=== PATIENT | female | born 1950 | race Caucasian/White ===

== ENCOUNTER 2021-09-14 11:45 | Outpatient (CLI) | payer OTHER, MEDICARE, SELFPAY ==
[2021-09-14 17:13] LABS: Albumin* 4.2 g/dL (3.3-5.0); Chloride* 92 mmol/L (96-114); Potassium* 3.7 mmol/L (3.6-5.1); Sodium* 137 mmol/L (135-149)
[2021-09-14 17:15] LABS: Bilirubin Total* 0.4 mg/dL (0.1-1.5); Carbon Dioxide* 36 mmol/L (20-32); Creatinine* 0.8 mg/dL (0.5-1.5); Estimated Glomerular Filt Rate 80 ml/min
[2021-09-14 17:16] LABS: Alanine Aminotransferase* 26 U/L (4-35); Alkaline Phosphatase* 131 U/L (40-150); Aspartate Amino Transferase* 37 U/L (12-35); Blood Urea Nitrogen* 14 mg/dL (7-30); Calcium* 8.4 mg/dL (8.4-10.6); Glucose* 100 mg/dL (60-115); Lipase* 121 U/L (23-300); Total Protein* 7.3 g/dL (6.0-8.3)
== END 2021-09-14 11:46 | disposition home or self-care (01) ==
PROVIDERS: PCP Family Medicine; Visit Provider Family Medicine
DX: K59.00 Constipation, unspecified (principal)
CPT/HCPCS: 80053; 83690

== ENCOUNTER 2021-10-08 15:10 | Outpatient (CLI) | payer OTHER, MEDICARE, SELFPAY ==
--- NOTE | 2021-10-08 15:30 | CRLHL7_ITS ---
For Patients: As a result of the Century Cures Act, medical imaging exams and procedure reports are released immediately into your electronic medical record. You may view this report before your referring provider. If you have questions, please contact your health care provider. INDICATION: Upper abdominal pain. Bilious vomiting. TECHNIQUE: An MRCP, including 2D, 3D and maximum intensity projection imaging, was performed along with multiplanar imaging of the abdomen without and with 15 cc of Dotarem contrast material IV. COMPARISON: Abdomen/pelvis CT of 02/06/2013. FINDINGS: The common bile duct is smoothly marginated and measures up to 4 mm in diameter. No filling defect is evident. The intrahepatic ducts are normal in caliber and appear to branch and taper in a grossly normal fashion. Postop changes of cholecystectomy are again demonstrated. The pancreatic duct is normal. A 1.5 x 1.1 x 0.9 cm pancreatic body cyst is demonstrated. This may communicate with the main pancreatic duct. The pancreatic parenchyma is otherwise unremarkable. The liver is normal in size, shape and signal. A typical 1.4 cm hemangioma is demonstrated in liver segment 6. the portal vein is patent and demonstrates no filling defect. No portosystemic collateral vein is evident. The spleen is negative. No ascites demonstrated. The adrenal cap glands and kidneys are within normal limits. Postop changes of gastric bypass are again demonstrated. A hiatal hernia of moderate size is noted. There is a moderate to large amount of stool in the colon. No lymphadenopathy is evident. IMPRESSION: 1. Negative MRCP post cholecystectomy. 2. 1.5 cm pancreatic body cyst. Consider IPMN. Based on recommendations of the ACR Incidental Findings Committee: Managing Incidental Findings on Abdominal CT: White Paper of the ACR Incidental Findings Committee, JACR, November 2009), follow up MRI in 1 year is recommended. 3. Post gastric bypass. 4. Typical 1.4 cm liver segment 6 hemangioma. 5. Hiatal hernia of moderate size. 6. Possible constipation. Dictated by Martin Meyer MD @ 10/11/2021 5:32:31 AM (Electronically Signed)
== END 2021-10-08 15:11 | disposition home or self-care (01) ==
LOC: MRI 15:12
PROVIDERS: PCP Family Medicine; Visit Provider Family Medicine
DX: R10.9 Unspecified abdominal pain (principal); K44.9 Diaphragmatic hernia without obstruction or gangrene; K86.2 Cyst of pancreas
CPT/HCPCS: 74183; A9575

== ENCOUNTER 2022-08-08 09:56 | Emergency (ER) | payer OTHER, MEDICARE, SELFPAY ==
[2022-08-08 10:07] VITALS: BP 125/76; PULSE 93; RESP 18; TEMP 36.3; O2SAT 99; BMI 27.9
--- NOTE | 2022-08-08 10:16 | CRLHL7_ITS ---
For Patients: As a result of the Cures Act, medical imaging exams and procedure reports are released immediately into your electronic medical record. You may view this report before your referring provider. If you have questions, please contact your health care provider. INDICATION: Fall. COMPARISON: None. TECHNIQUE: Left knee 3 views. IMPRESSION: No acute fracture. Alignment is normal. Jnyk-ns-[id number] degenerative changes most pronounced in the lateral compartment. Small joint effusion on lateral view. Dictated by Bud Castañeda MD @ 08/08/2022 12:23:46 PM (Electronically Signed)
--- NOTE | 2022-08-08 10:16 | CRLHL7_ITS ---
For Patients: As a result of the Century Cures Act, medical imaging exams and procedure reports are released immediately into your electronic medical record. You may view this report before your referring provider. If you have questions, please contact your health care provider. INDICATION: Fell and hit head yesterday TECHNIQUE: Noncontrast axial CT of the head. Coronal and sagittal reformats. Bone and soft tissue algorithms. COMPARISON: CT head report 01/20/2014 FINDINGS: No acute intracranial hemorrhage or abnormal extra-axial fluid collection. No midline shift, hydrocephalus, or herniation. Brain parenchymal volume appears age-appropriate. Nunez-white matter differentiation is grossly maintained. White matter attenuation is unremarkable. Midline structures appear within normal limits. Minor calcific plaquing at the carotid siphons. No paranasal sinus air-fluid level or mastoid effusion. Bilateral lens implants. Bony calvarium is grossly intact. Hyperostosis frontalis interna. Presumed small skull vault hemangioma at the right parietal vertex. Incidental right frontal convexity inner table osteoma. Partially visualized posterior cervical spinal fusion changes. IMPRESSION: No CT evidence of skull fracture or acute intracranial hemorrhage. Please note that all CT scans at this facility use dose modulation, iterative reconstruction, and/or weight-based dosing when appropriate to reduce radiation dose to as low as reasonably achievable. Dictated by Isabela Belcher MD @ 08/08/2022 11:02:02 AM (Electronically Signed)
--- NOTE | 2022-08-08 10:16 | CRLHL7_ITS ---
For Patients: As a result of the Cures Act, medical imaging exams and procedure reports are released immediately into your electronic medical record. You may view this report before your referring provider. If you have questions, please contact your health care provider. INDICATION: Fall. COMPARISON: None. TECHNIQUE: Left wrist 3 views. IMPRESSION: No acute fracture. Widening of the scapholunate interval could be due to underlying scapholunate ligament tear/insufficiency. Mild degenerative changes. Mild soft tissue swelling. Dictated by Bud Castañeda MD @ 08/08/2022 12:22:19 PM (Electronically Signed)
--- NOTE | 2022-08-08 10:17 | ED_ITS ---
HPI - General Adult General Time Seen by Provider: 10:17 Date Seen: 08/08/22 Chief complaint: Fall/Minor Trauma Stated complaint: fell, hit head Time Seen by Provider: 08/08/22 09:58 Source: patient Mode of arrival: ambulatory Limitations: no limitations History of Present Illness HPI narrative: Patient is a 71-year-old female with multiple medical problems including hypoparathyroidism, cervical stenosis of the spine status post cervical fusion migraine headaches, black breast cancer, ischemic stroke, fibromyalgia, sarcoidosis, wheals disease presents after a fall while trying to step off a curb at [employer] to get into the store she fell forward injured her left wrist and left knee ; this happened yesterday. Patient reports also she bumped the right front part of her head in her scalp line has a slight scrape there. Really has not had a significant headache, has no change in neck symptoms reports she did not lose consciousness, or have nausea vomiting or dizziness. She presents today for evaluation more concerned about her wrist. She has trouble with pronation supination of her wrist. She has no proximal arm tenderness. No complaint of pain in her back pelvis or lower extremities other than the left knee and she has been ambulatory. Related Data Home Medications Medication Instructions Recorded Confirmed CBD Cream topical 09/14/21 07/12/22 aspirin 81 mg tablet,delayed 81 mg PO QDAY 09/14/21 07/12/22 release calcitriol 0.5 mcg capsule 0.5 mcg PO TID 09/14/21 07/12/22 calcium carbonate 500 mg calcium 500 mg PO QDAY 09/14/21 07/12/22 (1,250 mg) chewable tablet (Calcium 500) levothyroxine 137 mcg tablet 137 mcg PO DAILY 09/14/21 07/12/22 lidocaine 5 % topical patch 1 patch topical Q24H 09/14/21 07/12/22 multivitamin (Multiple Vitamins 1 tab PO QDAY 09/14/21 07/12/22 tablet) omeprazole 40 mg capsule,delayed 40 mg PO BID 09/14/21 07/12/22 release potassium chloride 10 mEq 20 - 30 meq PO BID 09/14/21 07/12/22 tablet,extended release sennosides 15 mg tablet (Ex-Lax 15 - 30 mg PO QDAY PRN 09/14/21 07/12/22 (sennosides)) triamterene 37.5 1 cap PO DAILY 09/14/21 07/12/22 mg-hydrochlorothiazide 25 mg capsule budesonide 3 mg 9 mg PO DAILY 07/12/22 07/12/22 capsule,delayed,extended release Previous Rx's Medication Instructions Recorded gabapentin 300 mg capsule 600 mg (2 x 300 mg) PO TID #540 09/14/21 caps nortriptyline 10 mg capsule 20 mg (2 x 10 mg) PO QDAY #180 caps 09/14/21 cyclobenzaprine 10 mg tablet See Rx Instructions .Route 01/05/22 .COMPLEX #270 tabs tramadol 50 mg tablet 50 - 100 mg (1 - 2 x 50 mg) PO Q6H 04/06/22 PRN pain #360 tabs escitalopram oxalate 10 mg tablet 10 mg PO DAILY #90 tabs 05/07/22 furosemide 20 mg tablet 20 mg PO DAILY #90 tabs 05/07/22 promethazine 12.5 mg tablet 12.5 mg PO Q4-6H #270 tabs 06/15/22 Allergies Allergy/AdvReac Type Severity Reaction Status Date / Time saniya Allergy Severe asthma Verified 07/12/22 11:08 reaction azithromycin Allergy Mild Rash Verified 07/12/22 11:08 naproxen Allergy Unknown Verified 07/12/22 11:08 ibuprofen AdvReac Mild can cause Verified 07/12/22 11:08 bleeding due to gastric bypass Review of Systems Status of ROS: Reports: 6 or more systems reviewed and unremarkable except as noted in History and below [facility] Surgical History Status post total abdominal hysterectomy and bilateral salpingo-oophorectomy ?Z90.710 - Acquired absence of both cervix and uterus (ICD-10) ?Z90.722 - Acquired absence of ovaries, bilateral (ICD-10) ?Z90.79 - Acquired absence of other genital organ(s) (ICD-10) History of ventral hernia repair (09/23/08) ?Z98.890 - Other specified postprocedural states (ICD-10) ?Z87.19 - Personal history of other diseases of the digestive system (ICD-10) History of thyroidectomy (09/23/08) ?E89.0 - Postprocedural hypothyroidism (ICD-10) History of cholecystectomy (09/23/08) ?Z90.49 - Acquired absence of other specified parts of digestive tract (ICD- 10) History of Billroth II operation (09/23/08) ?Z98.0 - Intestinal bypass and anastomosis status (ICD-10) History of arthroscopic surgery of shoulder ?Z98.890 - Other specified postprocedural states (ICD-10) Family History Other Breast cancer Colon cancer Pancreatic cancer Social History Smoking Status: Never smoker Exam Narrative: Exam Narrative: Objective: Patient is alert orient x3 Vital signs unremarkable There is just a superficial scrape on the right hairline mid frontal no palpable step-off Neck postoperative change noted no midline tenderness no obvious trauma or redness or erythema. Chest back abdomen pelvis are unremarkable she Left wrist shows some tenderness over the ulnar styloid, limited pronation supination flexion extension due to tenderness, there baby wild swelling that area as well no snuffbox tenderness Left knee shows slight bruise in prepatellar swelling but no obvious open wounds, range of motion is full distal CMS intact. Neurologic is nonfocal upper lower extremities Const: Vital Signs, click to edit/add: Vital Signs - 24 hr 08/08/22 10:07 Temperature 97.4 F L Pulse Rate [Right Pulse Oximeter] 93 Respiratory Rate 18 Blood Pressure [Ri ght Upper Arm] 125/76 Pulse Oximetry 99 Oxygen Delivery Me thod Room Air Course Vital Signs Vital signs: Initial Vital Signs Temperature 97.4 F L 08/08/22 10:07 Temperature Source Temporal Artery Scan 08/08/22 10:07 Pulse Rate 93 08/08/22 10:07 Respiratory Rate 18 08/08/22 10:07 Blood Pressure 125/76 08/08/22 10:07 Blood Pressure Mean 92 08/08/22 10:07 Blood Pressure Position Sitting 08/08/22 10:07 Pulse Oximetry 99 08/08/22 10:07 Oxygen Delivery Method Room Air 08/08/22 10:07 Vital Signs Temperature 97.4 F L 08/08/22 10:07 Pulse Rate 93 08/08/22 10:07 Respiratory Rate 18 08/08/22 10:07 Blood Pressure 125/76 08/08/22 10:07 Pulse Oximetry 99 08/08/22 10:07 Oxygen Delivery Method Room Air 08/08/22 10:07 Temperature 97.4 F L 08/08/22 10:07 Pulse Rate 93 08/08/22 10:07 Respiratory Rate 18 08/08/22 10:07 Blood Pressure 125/76 08/08/22 10:07 Pulse Oximetry 99 08/08/22 10:07 Oxygen Delivery Method Room Air 08/08/22 10:07 Medical Decision Making MDM Narrative Medical decision making narrative: Patient is a 71-year-old female with multiple medical issues who has fallen yesterday has left wrist left knee pain, will get x-rays of these areas. I suspect she may have some injury to the wrist but the knee she is ambulatory I think this just a soft tissue bruise but will check x-rays. She also scraped the frontal area of her head and bumped her head, I think for completeness will get a head CT scan. Does not report any neck pain it has changed from normal and she has no neurologic symptoms or signs. She had no loss of consciousness, no nausea or significant head injury symptoms. Will check the above-mentioned studies. Addendum: 10:55 a.m.: Patient has some debris in the dorsal radius, that could be a small chip fracture. I do not see any other large bone fracture. Would recommend a wrist splint for now and orthopedic follow-up. Knee x-ray by my read looks unremarkable. Head CT is pending. If the head CT is reassuring I think we can discharge home with a left wrist splint, Tylenol as needed, icing, recheck with Ortho in 3-5 days. Will attempt to make an appointment for her. She could see the ortho PA Discharge Plan Discharge Clinical Impression: Abrasion of forehead, Acute pain of left wrist, Fall, Contusion of knee, left Patient Disposition: Home w/ Parent or Adult Condition: Stable Additional Instructions: Left wrist splint to wear until follow-up with Orthopedics. Recommend he follow up with orthopedic PA in the next 3-5 days. Please give the patient the number for the clinic. Recommend icing and Tylenol as needed. Return to ED problems or concerns. Activity Level: Light activity Discharge Diet: Regular Prescriptions: No Action potassium chloride 10 mEq tablet extended release 20 - 30 meq PO BID Patient Comments: 3 Tab QAM, 2 Tab in evening. lidocaine 5 % adhesive patch,medicated 1 patch topical Q24H Rx Instructions: APPLY FOR 12 HOURS OF EVERY 24 HOUR PERIOD omeprazole 40 mg capsule,delayed release(DR/EC) 40 mg PO BID levothyroxine 137 mcg tablet 137 mcg PO DAILY Ex-Lax (sennosides) 15 mg tablet 15 - 30 mg PO QDAY PRN multivitamin [Multiple Vitamins] Tablet 1 tab PO QDAY CBD Cream topical calcium carbonate [Calcium 500] 500 mg calcium (1,250 mg) tablet,chewable 500 mg PO QDAY aspirin 81 mg tablet,delayed release (DR/EC) 81 mg PO QDAY triamterene-hydrochlorothiazid 37.5-25 mg capsule 1 cap PO DAILY calcitriol 0.5 mcg capsule 0.5 mcg PO TID Rx Instructions: 2 in the morning, 1 in the afternoon and 2 in the evening. gabapentin 300 mg capsule 600 mg PO TID Qty: 540 4RF nortriptyline 10 mg capsule 20 mg PO QDAY Qty: 180 3RF budesonide 3 mg capsule,delayed,extend.release 9 mg PO DAILY cyclobenzaprine 10 mg tablet See Rx Instructions .ROUTE .COMPLEX Qty: 270 3RF Dose Instruction: TAKE 1 TABLET THREE TIMES A DAY NEEDED Rx Instructions: TAKE 1 TABLET THREE TIMES A DAY NEEDED tramadol 50 mg tablet 50 - 100 mg PO Q6H PRN (Reason: pain) Qty: 360 1RF escitalopram oxalate 10 mg tablet 10 mg PO DAILY Qty: 90 2RF furosemide 20 mg tablet 20 mg PO DAILY Qty: 90 2RF promethazine 12.5 mg tablet 12.5 mg PO Q4-6H Qty: 270 6RF Follow Up/Referrals: Dean Lomeli MD [Primary Care Provider] - Stand Alone Forms: [employer] Info Instructions
== END 2022-08-08 11:16 | disposition home or self-care (01) ==
LOC: ED 10:59
PROVIDERS: Emergency Provider Family Medicine; PCP Family Medicine
DX: S00.91XA Abrasion of unspecified part of head, initial encounter (principal); S60.212A Contusion of left wrist, initial encounter; S80.02XA Contusion of left knee, initial encounter; W01.0XXA Fall on same level from slipping, tripping and stumbling without subsequent striking against object, initial encounter
CPT/HCPCS: 29125; 70450; 73110; 73562; 99283; 99284

== ENCOUNTER 2022-09-03 11:49 | Outpatient (CLI) | payer OTHER, MEDICARE, SELFPAY | END 2022-09-03 11:50 | disposition home or self-care (01) | PROVIDERS: PCP Family Medicine; Visit Provider Family Medicine | DX: R51.9 Headache, unspecified (principal); E03.9 Hypothyroidism, unspecified; E20.9 Hypoparathyroidism, unspecified | CPT/HCPCS: 85651; 86140 ==

== ENCOUNTER 2022-12-03 11:43 | Outpatient (CLI) | payer OTHER, MEDICARE, SELFPAY | END 2022-12-03 11:44 | disposition home or self-care (01) | PROVIDERS: PCP Family Medicine; Visit Provider Family Medicine | DX: E03.9 Hypothyroidism, unspecified (principal); E20.9 Hypoparathyroidism, unspecified; R53.83 Other fatigue; E53.8 Deficiency of other specified B group vitamins; M79.603 Pain in arm, unspecified; R51.9 Headache, unspecified | CPT/HCPCS: 80053; 82607; 84439; 84443; 85651; 86140 ==

== ENCOUNTER 2022-12-27 09:52 | Outpatient (CLI) | payer OTHER, MEDICARE, SELFPAY ==
--- OUTSIDE RECORDS SUMMARY | 2022-12-27 10:02 | XMS_ITS | Continuity of Care Document ---
Author Name Unknown Organization [facility] Address [address] [place] [address] [address] [place] [address] Phone Care Team Providers Care Desktop Support Engineer Name Role Phone Unavailable Unavailable Unavailable Procedures Procedure Date Office/outpatient visit,[facility] 2009 Advance Directives Directive Yes / No Effective Date File Name No Information Encounters Encounter Description Practice Location Reason(s) For Visit Diagnoses Date Provider Providers Copied on Encounter Z [facility], [address], [facility], tel:[phone] [employer] No Information 0 No Information Office/outpat ient visit,[facility], [facility], [address] [place] [address], [place], [facility], tel:[phone] [employer] [place] No Information 0 No Information Referring Provider: Cruz Santos, [facility] [address], [place], [address]. tel:[phone] Family History Family Member Type Diagnosis Age At Onset No Information Payers Payer name Insurance type Covered [place] [id number] Social History Type Description Quantity Date Captured Comments Sex Female Smoking Status No Information Vital Signs Date / Time: Height Weight BMI Pulse Rate Blood Pressure Temperature Respiratory Rate Body Surface Area Head Circumference Head Circ. Percentile Wt./Bernardo. Percentile BMI percentile Pulse Ox Inhaled Ox 1:18 PM 59.80 in 66.890 kg (147.20 lbs) 29.0 4 kg/m eter (2) Chief Complaint And Reason For Visit No Information Reason For Referral Reason For Referral No Information History Of Present Illness Encounter Date Complaint History Of Prese nt Illness No Information Functional Status Date Functional Assessmen t No Information Instructions Date Instruction Additional Infor mation No Information Assessments Type Assessment Date No Information Patient Care Teams Name Effective Dates (start - stop) Status Members No Information
--- NOTE | 2022-12-27 10:15 | CRLHL7_ITS ---
For Patients: As a result of the Century Cures Act, medical imaging exams and procedure reports are released immediately into your electronic medical record. You may view this report before your referring provider. If you have questions, please contact your health care provider. Indication: Headache. Technique: Multiplanar, multisequence MRI of the brain was performed without intravenous contrast. Comparison: None relevant available. Findings: The corpus callosum, pituitary gland and clivus appear intact. Mild degenerative change visualized upper cervical spine. There is no restricted diffusion. No intracranial hemorrhage. The ventricles are proportionate to the cerebral sulci. The 4th ventricle appears midline. The basal cisterns appear patent. No abnormal extra-axial fluid collection identified. Mild parenchymal volume loss. Scattered T2 FLAIR hyperintense foci within the subcortical and periventricular white matter, favored to represent chronic ischemic microvascular disease. There is no intracranial mass, abnormal mass-effect or midline shift identified. Small dural ossification along the right frontoparietal convexity. Major intracranial vascular flow voids appear grossly intact. Both globes are preserved. Mild to moderate left mastoid effusion. Impression: 1. No acute intracranial process. 2. Mild chronic ischemic microvascular disease. 3. Mild to moderate left mastoid effusion. Dictated by Romeo Ackerman MD @ 12/27/2022 11:18:39 AM (Electronically Signed)
== END 2022-12-27 09:53 | disposition home or self-care (01) ==
LOC: MRI 10:00
PROVIDERS: PCP Family Medicine; Visit Provider Family Medicine
DX: R51.9 Headache, unspecified (principal); I67.82 Cerebral ischemia
CPT/HCPCS: 70551

== ENCOUNTER 2023-11-28 11:49 | Outpatient (CLI) | payer OTHER, MEDICARE, SELFPAY ==
--- OUTSIDE RECORDS SUMMARY | 2023-11-28 11:54 | XMS_ITS | Continuity of Care Document ---
Author Organization Z [facility] Address [address] [place] [address] [address] [place] [address] Phone Care Team Providers Care Risk Analyst Name Role Phone Unavailable Unavailable Unavailable Procedures Procedure Date Office/outpatient visit,[facility] 2009 Advance Directives Directive Yes / No Effective Date File Name No Information Encounters Encounter Description Practice Location Reason(s) For Visit Diagnoses Date Provider Providers Copied on Encounter Z [facility], [address] [address], [place], [facility], tel:[phone] [employer] No Information 0 No Information Office/outpat ient visit,[facility], [facility] [place] [place] [facility], [address] [address], [place], [facility], tel:[phone] [employer] [place] No Information 0 No Information Referring Provider: Cruz Santos, [facility] [address] [facility] [address], [address]. tel:[phone] Family History Family Member Type Diagnosis Age At Onset No Information Payers Payer name Insurance type Covered [place] [id number] Social History Type Description Quantity Date Captured [...]
--- OUTSIDE RECORDS SUMMARY | 2023-11-28 11:54 | XMS_ITS | Clinical Summary ---
Author Organization [facility] Address [address] [place] [address] Care Team Providers Care Motion Picture Narrator Name Role Phone Elsewhere, Pcp Primary Care Provider Unavailabl e Source Comments Patient records contain information from all sites at [facility]. For routine questions regarding patient records, call [phone] during business hours, M-F 8:00 AM - 5:00 PM Central Time. Record requests for emergency care only can be directed to [phone] at any time.[facility] Allergies Active Allergy Reactions Criticality Noted Date Comments Mallory Anaphylaxis High 06/20/2017 Ibuprofen Other (see comments) Low 03/06/2006 Other reaction(s): per pt MD requested not to take p bypass, unable to take because of ulcers Naproxen Other (see comments) 07/12/2022 Nsaids (Non-Steroidal Anti-Inflammatory Drug) Other (see comments) High 11/22/2001 Past history of Mini gastric bypass (not to take Nsaids) Ondansetron Hcl GI intolerance High 10/02/2019 Medications * This document contains information received from the source organization and may not represent a complete record from that organization. cholecalciferol (for_VITAMIN D3) 1,000 Unit tablet Take 1 tablet by mouth daily. 11/17/19 16 Active cyclobenzaprine (for_FLEXERIL) 10 mg tablet Take 1 tablet by mouth 3 (three) times a day as needed for muscle spasms. 02/12/19 17 Active melatonin 5 mg tablet Take 1 tablet by mouth at bedtime as needed (sleep aid). 05/18/19 17 Active promethazine (PHENERGAN) 12.5 mg tablet Take 12.5-25 mg by mouth as needed for nausea. 10/13/19 18 Active lidocaine (LIDODERM) 5 % Place 1 patch on the skin daily as needed (pain). Remove & discard patch within 12 hours or as directed by MD. 150 patch 3 01/28/20 18 Active KETAMINE 5%, LIDOCAINE 5%-PLO Apply topically 3 (three) times a day as needed. Active furosemide (LASIX) 20 mg tablet Take 20 mg by mouth daily. Active multivitamin tablet Take 1 tablet by mouth daily. Active acetaminophen (TYLENOL) 500 mg tablet Take 2 tablets (1,000 mg total) by mouth every 6 (six) hours as needed for mild pain or score 1-3 of 10. 40 tablet 2 10/03/19 Active calcium carbonate 1,500 mg (600 mg calcium) tablet Take 3 tablets (1,800 mg of calcium total) by mouth 3 (three) times a day. 10/03/19 Active Additional Information Patient taking differently: 4,200 mg of calciumoral 3 times daily,2 tablets (1200 mg), 3 tablets(1800 mg), 2 tablets (1200 mg), takes so doesn't interfere with thyroid medicine dosing, Reported on 05/04/[address] tablet Take 81 mg by mouth daily. Active cyanocobalamin (VITAMIN B12) 1,000 mcg/mL injection Inject intramuscularly every 30 (thirty) days. Active traMADoL (ULTRAM) 50 mg tablet Take 50 mg by mouth every 4 (four) hours as needed for pain. Active benzonatate (TESSALON PERLES) 100 mg capsule Take 100 mg by mouth 3 (three) times a day as needed. 05/31/19 21 Active docusate sodium (COLACE) 100 mg capsule Take 3 capsules by mouth daily. 08/03/19 12 Active nortriptyline (PAMELOR) 10 mg capsule Take 1 capsule (10 mg total) by mouth at bedtime. 30 capsule 11 08/01/19 22 Active Additional Information Patient not taking.Reported on 08/22/2023 mometasone 0.033 %-ipratropium 0.02 %-diphenhydrami ne 0.033 % nasal spray Administer 2 sprays into each nostril 2 (two) times a day. Shake very well prior to each use. 75 mL 3 08/01/19 22 Active budesonide (ENTOCORT EC) 3 mg 24 hr capsule Take 3 capsules (9 mg total) by mouth every morning. 270 capsule 3 06/25/19 23 Active Additional Information Patient not taking.Reported on 08/22/2023 codeine-guaiFEN esin (ROBITUSSIN-AC) 10-100 mg/5 mL liquid TAKE 10ML BY MOUTH EVERY 4-6 HOURS NEEDED FOR COUGH. Active Synthroid 125 mcg tablet Take 125 mcg by mouth every morning before breakfast. 12/07/19 23 Active albuterol 90 mcg/actuation inhalerIndicati ons:Asthma Chronic (HCC) Inhale 2 puffs every 6 (six) hours as needed for wheezing. 18 g 01/24/20 23 024 Active Additional Information Patient not taking.Reported on 08/22/2023 potassium chloride (KLORCON/K-TAB) 10 mEq ER tabletIndicatio ns:Hypokalemia Take 3 tablets (30 mEq total) by mouth 2 (two) times a day with meals. 640 tablet 3 05/05/19 24 Active calcitRIOL (ROCALTROL) 0.5 mcg capsule TAKE 3 CAPSULES IN THE MORNING AND 2 CAPSULES IN THE EVENING DIRECTED 500 capsule 3 06/09/19 24 Active Additional Information Patient taking differently: oral, 2 capsules morning, 1 in the afternoon, 2 capsules in the evening, Reported on 06/23/2023 omeprazole (PriLOSEC) [address] capsuleIndicati ons:Gastroesoph ageal Reflux Disease Without Esophagitis TAKE 1 CAPSULE TWICE A DAY BEFORE BREAKFAST AND DINNER 200 capsule 3 06/30/19 24 Active mometasone 0.033 %-ipratropium 0.02 %-diphenhydrami ne 0.033 % nasal spray Administer 2 sprays into each nostril 2 (two) times a day. Shake very well prior to each use. 84 mL 3 08/23/19 24 Active fluticasone propionate (Flonase) 50 mcg/actuation nasal spray Administer 2 sprays into each nostril daily. 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 Asthma Chronic 10/28/2011 Keratosis Seborrheic 10/25/2011 Hypercholesterolemia 08/03/2011 Other Nonspecific Abnormal Finding Of Lung Field 08/03/2011 Overview (11/24/2017): Overview: Followed at [facility] Cancer Breast Ductal In Situ Left 04/05/2011 Stroke 06/01/2010 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 08/21/2008 Hernia Abdominal Wall 06/08/2006 Anemia Iron Deficiency 03/01/2006 Gallstone Without Obstruction 10/09/2003 Overview (11/24/2017): Overview: LW Modifier: s/p cholecystectomy 10-09-03 LW Onset: [id number] ; Gallstones Hypoparathyroidism 07/05/2003 Hypothyroidism 11/14/2002 Overview (11/24/2017): Overview: LW Onset: [id number] ; Hypothyroidism On Replacement Limitation Of Motion Shoulder Joint Right Arthroplasty Total Shoulder Replacement Status P ost Right Encounters Date Type Department Care Team Description 11/10/2023 Clinical Communication Division of Pulmonary Medicine in [place], [place] [address] [place] [address] Meek Solano M.D. 11/09/2023 7:34 AM CDT - 11/09/2023 11:59 PM CDT Hospital Encounter Division of Pulmonary Medicine in [place], [place] [address] [place] [address] Chapincito Singer M.D. Infiltrate Pulmonary Not Eosinophilic Discharge Disposition: Home or Self Care 11/08/2023 12:57 PM CDT - 11/08/2023 11:59 PM CDT Hospital Encounter Division of Pulmonary Medicine in [place], [place] [address] [place] [address] Meek Solano M.D. Discharge Disposition: Home or Self Care 11/08/2023 10:51 AM CDT - 11/08/2023 12:56 PM CDT Hospital Encounter Department of Radiology, [facility], in [place], [place] [address] [place] [phone] Meek Solano M.D. Infiltrate Pulmonary Not Eosinophilic Discharge Disposition: Home or Self Care 11/08/2023 Orders Only Division of Pulmonary Medicine in [place], [place] [address] [place] [phone] Meek Solano M.D. 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 Med Refill from Last 3 Months Immunizations Name Administration Dates Next Due Influenza Split 12/03/2013, 3,12/01/2011,2009,11/08/2007 Influenza high dose QV(65 ye ars or older) (PF) 12/03/2019 Influenza, Seasonal, Injectable 11/28/2006 PPSV23 11/17/2007 RZV (SHINGRIX) 12/21/2019(Deferred: Patient Ref used) Td (Adult), adsorbed 02/07/2006,08/30/2002,08/30 Td, (Adult) Unspecified 02/07/2006 Tdap 04/04/2013 influenza trivalent high dos e (HD)(PF) 12/01/2020,12/11/2018,11/28/2017,2013,11/07/2012 influenza trivalent vaccine (6 months and older)(PF) 11/23/2013,11/17/2012,11/19/2011,2010,12/10/2009,11/17/2009,11/02/2008 influenza vaccine quad (FLUZONE/FLUARIX) (6 months and older)(PF) 11/26/2016,11/27/2015,12/06/2014 Family History Medical History Relation Name Comments AA - Aortic aneurysm Aunt 1 AA - Aortic aneurysm Aunt 2 AA - Aortic aneurysm Father shubham stephens jr Coronary artery disease Father shubham stephens jr Hyperlipidemia Father shubham stephens jr Hypertension Father shubham stephens jr Breast cancer Father's Sister 1 ebenezer lowry Rectal cancer Father's Sister 2 AA - Aortic aneurysm Grandfather Pancreatic cancer Maternal Grandfather augie sitnick Colon cancer Maternal Grandmother lilibeth sitnick Breast cancer Mother norma stephens Colon cancer Mother norma stephens Hypertension Mother norma stephens Lung cancer Mother norma stephens Rectal cancer Mother norma miers Stroke Mother norma stephens Transient ischemic attack Mother norma stephens Coronary artery disease Paternal Grandfather shubham stephens sr Breast cancer Paternal Grandmother farrukh miers Lung cancer Paternal Grandmother farrukh miers Relation Name Status Comments Aunt 1 Aunt 2 Father shubham stephens jr Father's Sister 1 ebenezer lowry Father's Sister 2 Grandfather Maternal Grandfather augie sitnick Maternal Grandmother lilibeth sitnick Mother norma stephens Paternal Grandfather shubham stephens sr Paternal Grandmother farrukh stephens Social History Tobacco Use Types Packs/Day Years Used Date Smoking Tobacco: Former Cigarettes Q uit: 10/15/1972 Passive Smoke Exposure: Past Smokeless Tobacco: Never Tobacco Cessation:Counseling Given: Not Answered Alcohol Use Standard Drinks/Week Comments Yes 1 (1 standard drink = 0.6 oz pur e alcohol) [facility] Utilities Answer Date Recorded In the past 12 months has e [employer], oil, or water [employer] threatened to shut off services in your home? No 07/05/2023 Humiliation, Afraid, Rape, and Kick questionnair e Answer Date Recorded Within the last year, have y ou been afraid of your partner or ex-partner? No 08/06/2019 Within the last year, have y ou been humiliated or emotionally abused in other ways by your partner or ex-partner? No 08/06/2019 Physically Abused Not on file 08/06/2019 Within the last year, have y ou been raped or forced to have any kind of sexual activity by your partner or ex-partner? No 08/06/2019 Social Connection and Isolation Panel [NHANES] A nswer Date Recorded In a typical week, how many times do you talk on the phone with family, friends, or neighbors? Twice a week 08/06/2019 Frequency of Social Gatherings with Friends and Family Not on file 08/06/2019 How often do you attend episcopal or restorationism serv ices? Never 08/06/2019 Active Member of Clubs or Organizations Not on f ile 08/06/2019 Attends Club or Organization Meetings Not on nidhi e 08/06/2019 Are you , , di vorced, , never , or living with a partner? 08/06/2019 AUDIT-C Answer Date Recorded Frequency of Alcohol Consumption Not on file 08/06/2019 Average Number of Drinks Not on file 020 Q3: How often do you have si x or more drinks on one occasion? Never 08/06/2019 Overall Financial Resource Strain (CARDIA) Answe r Date Recorded Difficulty of Paying Living Expenses Not hard at all 11/08/2018 [facility] - Occupational Stress Questionnaire Answer Date Recorded Do you feel stress - tense, restless, nervous, or anxious, or unable to sleep at night because your mind is troubled all the time - these days? To some extent 08/06/2019 Exercise Vital Sign Answer Date Recorde d On average, how many days pe r week do you engage in moderate to strenuous exercise (like a brisk walk)? 5 days Minutes of Exercise per Session Not on file 07/05/2023 Hunger Vital Sign Answer Date Recorded Within the past 12 months, y ou worried that your food would run out before you got the money to buy more. Never true 07/05/19 24 Within the past 12 months, t he food you bought just didn't last and you didn't have money to get more. Never true 07/05/2023 PRAPARE - Transportation Answer Date Re corded In the past 12 months, has l ack of transportation kept you from medical appointments or from getting medications? No 06/08 In the past 12 months, has l ack of transportation kept you from meetings, work, or from getting things needed for daily living? No 07/05/2023 Nutrition Answer Date Recorded On average, how many serving s of fruits and vegetables do you eat per day (serving size is equal to 1 cup or approximately the size of a tennis ball)? 5 or more 07/05/2023 Dental Answer Date Recorded Dental: Regular Dentist Yes 07/05/19 Employment Answer Date Recorded Employment status Unemployed/not in e paid workforce and NOT seeking employment 07/05/2023 Housing Stability Answer Date Recorded What is your living situation today? I have a [facility] place to live 07/05/2023 Education Answer Date Recorded What is the highest level of school you have completed or the highest degree you have received? Associate degree: occupational, technical, or vocational program 11/08/2018 Comments No Sex and Gender Information Value Date Recorded Sex Assigned at Female 06/20/2017 1:09 PM CDT Legal Sex Female 2:46 AM SOCIAL PSYCHOLOGIST Gender Identity Female 06/20/2017 1:09 PM CDT Sexual Orientation Straight 06/20/2017 1: 09 PM CDT Last Filed Vital Signs Vital Sign Reading Time Taken Comments Blood Pressure 118/86 11/09/2023 10:[address] anding Pulse 77 11/09/2023 10:33 AM CDT Temperature 36.5 ??C (97.7 ??F) 11/09/2023 9:44 AM CD T Respiratory Rate 18 11/09/2023 10:34 AM CDT Oxygen Saturation 98% 11/09/2023 10:33 AM CDT Inhaled Oxygen Concentration - - Weight 63.6 kg (140 lb 3.4 oz) 11/08/2023 1:25 P M CDT Height 149.2 cm (4' 10.74) 11/08/2023 1:25 PM C DT Body Mass Index 28.57 11/08/2023 1:25 PM CDT Plan of Treatment Upcoming Encounters Date Type Department Care Team (Latest Contact Info) Description 12/07/2023 12:15 PM CDT Appointment Department of Cardiovascular Diseases in [place], [place] [address] [place] [address] Meek Solano M.D. [address] [place] [phone] Discharge Disposition: Home or Self Care 12/07/2023 2:30 PM CDT Diagnostic Division of Pulmonary Medicine in [place], [place] [address] [place] [address] Meek Solano M.D. [address] [place] [phone] 12/19/2023 10:40 AM SOCIAL PSYCHOLOGIST Appointment Department of Cardiovascular Diseases in [place], [place] [address] [place] [phone] Meek Solano M.D. [address] [place] [phone] 12/27/2023 4:30 PM SOCIAL PSYCHOLOGIST Appointment Division of Pulmonary Medicine in [place], [place] [address] [place] [address] Meek Solano M.D. [address] [place] [phone] Discharge Disposition: Home or Self Care Health Maintenance Due Date Last Done Comments CT Colonography 1950 Cologuard 1950 RSV vaccine - (32-3 6 weeks) or 60+ years (1 - Risk 60-74 years 1-dose series) 2012 Lipid (Cholesterol) Screening 02/07/2015 (Performed elsewhere) Zoster Vaccines (2 of 2) 02/15/2020 12/21/2019 Mammogram 01/16/2022 01/16/2021, 12/08, 11/08/2018, Additional history exists Pneumococcal vaccine (65+ ye ars) (2 of 2 - PCV) 09/28/2022 09/28/2021, 11/17/2007 Depression Screening (Annual PHQ-2) 02/07/2023 DTaP,Tdap,and Td Vaccines (2 - Td or Tdap) 04/04/2023 04/04/2013, 02/07/2006, 02/07/2006, Additional history exists COVID-19 Vaccine (5 - 2023-2 5 season) 2023 12/22/2021, 11/23/2020, 05/06/2020, Additional history exists Influenza Vaccine (#1) 2023 , 12/10/2020, 12/01/2020, Additional history exists Creatinine Level (Kidney Fun ction Test) 06/23/2024 06/24/2023, 05/28/2022, 03/21/2022, Additional history exists Potassium Level 06/23/2024 06/24/2023, 06/08, 06/14/2022, Additional history exists Sodium Level 06/23/2024 06/24/2023, 05/09, 03/21/2022, Additional history exists Thyroid Stimulating Hormone (TSH) test for thyroid function 06/23/2024 06/24/2023, 05/28/2022, 05/01/2021, Additional history exists Office Visit for Blood Press ure Check / Re-check 06/26/2024 06/27/2023 Fasting Glucose for Diabetes Screening 05/28/2025 05/28/2022, 03/21/2022, 11/28/2019, Additional history exists Colonoscopy 01/18/2027 01/18/2022, 01/07, 03/19/2013, Additional history exists Colorectal Cancer Surveillance 01/18/2027 Hepatitis C Screening Completed 03/01/2006 Fall Risk Screen (Annual) Completed 11/09/2023 Medical Devices Implanted Type Area Puller Through Device Identifier Shelf Expiration Date Model / Serial / Lot Conversions - Default Historical Implant Device Implanted:2014 (Quantity not on file) Hardware e.g. pins/screw s/rods Description:Device Status Te xt - Hardware. screws rods pins in neck/spine. Arthrex-Prox Tenodesis [id number] - [id number] Implanted:Qty: 1 on 01/29/2016 Hardware e.g. pins/screw s/rods Arthrex Description:Device Manufactu rer - Arthrex. Device Status Text - [id number]. Pin Fix Stn Ss Sngl End 9x3.2 - [id number] Implanted:Qty: 1 on 10/02/2019 at [facility] Hardware e.g. pins/screw s/rods Right: Shoulder [employer] [id number] / / [id number] Mini Ream Guide Comp Sep - [id number] Implanted:Qty: 1 on 10/02/2019 at [facility] Hardware e.g. pins/screw s/rods Right: Shoulder [employer] 01/10/2027 [id number] / / [id number] Scrw Mini Ream Guide Comp Sep - [id number] Implanted:Qty: 1 on 10/02/2019 at [facility] Hardware e.g. pins/screw s/rods Right: Shoulder [employer] 03/20/2029 [id number] / / [id number] Drl Cmp Shldr Aug 2.7 - [id number] Implanted:Qty: 1 on 10/02/2019 at [facility] Hardware e.g. pins/screw s/rods Right: Shoulder [employer] 10/29/2028 [id number] / / [id number] Screw 3.5 Hex Lck 4.75x15 - [id number] Implanted:Qty: 1 on 10/02/2019 at [facility] Hardware e.g. pins/screw s/rods Right: Shoulder [employer] 08/30/2029 [id number] / / [id number] Screw 3.5 Hex Lck 4.75x15 - [id number] Implanted:Qty: 1 on 10/02/2019 at [facility] Hardware e.g. pins/screw s/rods Right: Shoulder [employer] 08/26/2029 [id number] / / [id number] Scrw Cmp 6.5x30 - [id number] Implanted:Qty: 1 on 10/02/2019 at [facility] Hardware e.g. pins/screw s/rods Right: Shoulder [employer] 08/20/2029 [id number] / / [id number] Screw 3.5 Hex Lck 4.75x15 - [id number] Implanted:Qty: 1 on 10/02/2019 at [facility] Hardware e.g. pins/screw s/rods Right: Shoulder [employer] 09/03/2029 [id number] / / [id number] Scrw Lck 4.75x40 - [id number] Implanted:Qty: 1 on 10/02/2019 at [facility] Hardware e.g. pins/screw s/rods Right: Shoulder [employer] 10/24/2028 [id number] / / [id number] Imaging Marker-05/23/2014 Implanted:2014 (Quantity not on file) Imaging Marker Breast Description:Device Status Te xt - BreastOth. Left marker. Conversions - Default Historical Implant Device Implanted:2014 (Quantity not on file) Misc Other Description:Device Status Te xt - MiscOther. medical clip abdomen. Bsplt Glnd Cmp Rv Aug Sm - [id number] Implanted:Qty: 1 on 10/02/2019 at [facility] Shoulder Implant Right: Shoulder [employer] 05/17/2023 [id number] / / [id number] Bsplt Glnd Cmp 36 - [id number] Implanted:Qty: 1 on 10/02/2019 at [facility] Shoulder Implant Right: Shoulder [employer] 04/17/2029 [id number] / / [id number] Hum Tr Cmp Rvrs Std +6 - [id number] Implanted:Qty: 1 on 10/02/2019 at [facility] Shoulder Implant Right: Shoulder [employer] 03/09/2029 [id number] / / [id number] Hum Stm Cmp Tahir 11 - [id number] Implanted:Qty: 1 on 10/02/2019 at [facility] Shoulder Implant Right: Shoulder [employer] 01/26/2029 [id number] / / [id number] Hum Brng Cmp Vve Rvrs Std 36 - [id number] Implanted:Qty: 1 on 10/02/2019 at [facility] Shoulder Implant Right: Shoulder [employer] [id number] 07/07/2024 [id number] / / [id number] Screw Locking Tit. Transconnector - [place] [id number] Implanted:Qty: 2 on 02/19/2010 Spine Implant Depuy Synthes Description:Device Manufactu rer - Synthes. Device Status Text - [id number]. Screw Canc. Polyaxial 4.5 X 22mm - [place] [id number] Implanted:Qty: 3 on 02/19/2010 Spine Implant Depuy Synthes Description:Device Manufactu rer - Synthes. Device Status Text - [id number] [id number]. Reji Ti Cervical Synthes 3.5x240 - [place] [id number] Implanted:Qty: 2 on 02/19/2010 Spine Implant Depuy Synthes Description:Device Manufactu rer - Synthes. Device Status Text - SPINE [id number]. Transconnector-T op Loading Sz Medium - [place] [id number] Implanted:Qty: 1 on 02/19/2010 Spine Implant Depuy Synthes Description:Device Manufactu rer - Synthes. Device Status Text - [id number] [id number]. Screw Canc. Polyaxial 3.5 X 14mm - [place] [id number] Implanted:Qty: 2 on 02/19/2010 Spine Implant Depuy Synthes Description:Device Manufactu rer - Synthes. Device Status Text - SPINE [id number]. Screw Canc. Polyaxial 4.5 X 26mm - [place] [id number] Implanted:Qty: 2 on 02/19/2010 Spine Implant Depuy Synthes Description:Device Manufactu rer - Synthes. Device Status Text - [id number] [id number]. Screw Canc. Polyaxial 3.5 X 12mm - [place] [id number] Implanted:Qty: 6 on 02/19/2010 Spine Implant Depuy Synthes Description:Device Manufactu rer - Synthes. Device Status Text - SPINE [id number]. Screw Locking Ti - [place] [id number] Implanted:Qty: 13 on 02/19/2010 Spine Implant Depuy Synthes Description:Device Manufactu rer - Synthes. Device Status Text - SPINE [id number]. Screw Canc. Polyaxial 4.0 X 16mm - [place] [id number] Implanted:Qty: 2 on 02/19/2010 Spine Implant Depuy Synthes Description:Device Manufactu rer - Synthes. Device Status Text - [id number] [id number]. Nut Locking Titanium Transconnector - [place] [id number] Implanted:Qty: 2 on 02/19/2010 Spine Implant Depuy Synthes Description:Device Manufactu rer - Synthes. Device Status Text - SPINE [id number]. Conversions - Default Historical Implant Device - [place] [id number] Implanted:2014 (Quantity not on file) Spine Implant Description:Device Status Te xt - SPINE [id number]. screws rods pins in neck/spine. Procedures Procedure Name Priority Date/Time Associated Diagnosis Comments CYTOLOGY NON-INJECTION SPECIALIST Routine 11/09/2023 9:35 AM CDT Infiltrate Pulmonary Not Eosinophilic CELL COUNT AND DIFFERENTIAL, BROCHOALVEOLAR LAVAGE Routine 11/09/2023 9:35 AM CDT Infiltrate Pulmonary Not Eosinophilic BACTERIAL CULTURE, AEROBIC + SUSC, RESP Routine 11/09/2023 9:35 AM CDT Infiltrate Pulmonary Not Eosinophilic MYCOBACTERIAL CULTURE, V Routine 11/09/2023 9:35 AM CDT Infiltrate Pulmonary Not Eosinophilic FUNGAL SMEAR Routine 11/09/2023 9:35 AM CDT Infiltrate Pulmonary Not Eosinophilic ACID FAST SMEAR FOR MYCOBACTERIUM Routine 11/09/2023 9:35 AM CDT Infiltrate Pulmonary Not Eosinophilic GRAM STAIN Routine 11/09/2023 9:35 AM CDT Infiltrate Pulmonary Not Eosinophilic FUNGAL CULTURE, ROUTINE Routine 11/09/2023 9:35 AM CDT Infiltrate Pulmonary Not Eosinophilic ECG Routine 11/08/2023 2:56 PM CDT Infiltrate Pulmonary Not Eosinophilic CT CHEST WITHOUT IV CONTRAST RAD - Routine (most inpatients and all outpatients) 11/08/2023 12:01 PM CDT Infiltrate Pulmonary Not Eosinophilic SODIUM, S/P Routine 06/24/2023 10:36 AM CDT Anemia Iron Deficiency Hypothyroidism Hypoparathyroidism (HCC) Bypass Intestinal Status Post THYROID-STIMULATING HORMONE-SENSITIVE (S-TSH) Routine 06/24/2023 10:36 AM CDT Anemia Iron Deficiency Hypothyroidism Hypoparathyroidism (HCC) Bypass Intestinal Status Post POTASSIUM, S/P Routine 06/24/2023 10:36 AM CDT Anemia Iron Deficiency Hypothyroidism Hypoparathyroidism (HCC) Bypass Intestinal Status Post CREATININE WITH EGFR, S/P Routine 06/24/2023 10:36 AM CDT Anemia Iron Deficiency Hypothyroidism Hypoparathyroidism (HCC) Bypass Intestinal Status Post GLUCOSE, FASTING, S/P Routine 05/28/2022 10:54 AM CDT Hypoparathyroidism (HCC) Anemia Iron Deficiency Hypothyroidism Bypass Intestinal Status Post Hypokalemia Deficiency Vitamin B12 COLONOSCOPY Routine 01/18/2022 3:56 PM SOCIAL PSYCHOLOGIST Screening Cancer Colon BI BREAST SCREENING BILATERAL WITH TOMOSYNTHESIS RAD - Routine (most inpatients and all outpatients) 01/16/2021 10:28 AM SOCIAL PSYCHOLOGIST Screening Mammogram Average Risk Patient Density Breast from Last 3 Months or Most Recently Relevant to Health Maintenance Results * Cytology Non-INJECTION SPECIALIST (11/09/2023 9:35 AM CDT) 11/10/2023 2:44 PM CDT DTL Participated in the Interpretation French Landin M.D.-Patholog y Fellow Augusta Ndiaye M.D., Ph.D.-Patholo gy Resident 11/10/2023 2:44 PM CDT DTL Report electronically signed by Vivek Valdez M.D. I verify that I have examined all relevant slides/materi als for the specimen(s) and rendered or confirmed the diagnosis. 11/10/2023 2:44 PM CDT DTL Gross Description Received cloudy fluid in CytoLyt container. 11/10/2023 2:44 PM CDT DTL Source A. Bronchoalveol ar, lavage 11/10/2023 2:44 PM CDT DTL Interpretation A. Bronchoalveol ar, lavage (ThinPrep): Negative for malignancy. 11/10/2023 2:44 PM CDT DTL Lavage (Bronchoalveolar Lavage) 11/09/2023 9:35 AM CDT us Meek Solano M.D. LAB SURG PATH ORDERABLES Claire sudha Result [facility] [place] [address] [place] [address], [facility] DTL [address] [place] [address] * Cell Count and Differential, Bronchoalveolar Lavage (11/09/2023 9:35 AM CDT) Fluid Type BAL DEFAULT 11/09/2023 10:41 AM CDT [facility] Gross appearance Cloudy 11/09/19 24 10:41 AM CDT [facility] Total Nucleated Cells 9.6 x10(6) 11/09/2023 10:41 AM CDT [facility] Comment: Count approximate due to pellicle. ----REFERENCE VALUE---- The reference range and other method performance specifications have not been established for this body fluid. The test result must be integrated into the clinical context for interpretation. ----ADDITIONAL INFORMATION---- This test has been modified from the string studies director's instructions. Its performance characteristics were determined by [facility] in a manner consistent with CLIA requirements. This test has not been cleared or approved by the U.S. Food and Drug Administration. Volume Recovered 35 mL 11/09/19 10:41 AM CDT [facility] Alveolar Macrophage 43 % 11/08 11:21 AM CDT [facility] Comment: ----REFERENCE VALUE---- The reference range and other method performance specifications have not been established for this body fluid. The test result must be integrated into the clinical context for interpretation. Lymphocytes 46 % 11/09/2023 11:21 AM CDT [facility] Comment: ----REFERENCE VALUE---- The reference range and other method performance specifications have not been established for this body fluid. The test result must be integrated into the clinical context for interpretation. Neutrophils 2 % 11/09/2023 11:21 AM CDT [facility] Comment: ----REFERENCE VALUE---- The reference range and other method performance specifications have not been established for this body fluid. The test result must be integrated into the clinical context for interpretation. Eosinophils 1 % 11/09/2023 11:21 AM CDT [facility] Comment: ----REFERENCE VALUE---- The reference range and other method performance specifications have not been established for this body fluid. The test result must be integrated into the clinical context for interpretation. Other Cells 8 % 11/09/2023 11:21 AM CDT [facility] Comment: ----REFERENCE VALUE---- The reference range and other method performance specifications have not been established for this body fluid. The test result must be integrated into the clinical context for interpretation. Comment See Comment 11/09/2023 11:21 AM CDT [facility] Comment:Others are lining ce lls. Lavage (Bronchoalveolar Lavage) 11/09/2023 9:35 AM CDT us Meek Solano M.D. LAB BODY FLUIDS AND STOOLS OR DERABLES Final Result Performing Organization Address City/[facility]/ZIP Co de Phone Number [facility] [place] [address] [place] [address] * Bacterial Culture, Aerobic + Susceptibility, Respiratory (11/09/2023 9:35 AM CDT) Bacterial Culture, Aerobic, Resp Upper respiratory/or al microbiota 11/15/2023 10:02 AM CDT DTL Lavage (Bronchoalveolar Lavage) 11/09/2023 9:35 AM CDT us Meek Solano M.D. LAB MICROBIOLOGY - GENERAL OR DERABLES Final Result Performing Organization Address [facility]/ZIP Co de Phone Number [facility] [place] [address] [place] [address], [facility] [address] [place] [address] * Fungal Smear (11/09/2023 9:35 AM CDT) Fungal Smear Negative. 11/09/2023 2:54 PM CDT DTL Lavage (Bronchoalveolar Lavage) 11/09/2023 9:35 AM CDT us Meek Solano M.D. LAB MICROBIOLOGY - GENERAL OR DERABLES Final Result [facility] [place] [address] [place] [address], [facility] [address] [place] [address] * Acid Fast Smear for Mycobacterium (11/09/2023 9:35 AM CDT) Acid Fast Smear For Mycobacterium Negative. 11/09/2023 3:53 PM CDT DTL Lavage (Bronchoalveolar Lavage) 11/09/2023 9:35 AM CDT Meek Solano M.D. LAB MICROBIOLOGY - GENERAL OR DERABLES Final Result Performing Organization Address City/[facility]/ZIP Co de Phone Number [facility] [place] [address] [place] [address], [facility] [address] [place] [address] * Gram Stain (11/09/2023 9:35 AM CDT) Pathologist [facility] Gram Stain No organisms seen. White blood cells, Present. 11/09/2023 11:50 AM CDT DTL Lavage (Bronchoalveolar Lavage) 11/09/2023 9:35 AM CDT Meek Solano M.D. LAB MICROBIOLOGY - GENERAL OR DERABLES Final Result Performing Organization Address City/[facility] Co de Phone Number [facility] [place] [address] [place] [address], [facility] [address] [place] [address] * ECG 12 Lead (11/08/2023 2:56 PM CDT) Ventricular Rate ECG/Min 83 BPM MUSE DE Interval 158 ms MUSE QRSD Interval 64 ms MUSE QT Interval 388 ms MUSE QTC Interval 455 ms MUSE P [place] 44 degrees MUSE R [place] -7 degrees MUSE T Wave [place] 40 degrees MUSE 11/08/2023 2:56 PM CDT 11/08/2023 2:59 PM CDT Impressions MUSE - 11/08/2023 2:59 PM CDT Sinus rhythm Premature ventricular complexes Low voltage QRS in the chest leads Low anterior forces Marked ST abnormality, possible anterolateral subendocardial injury When compared with ECG of 27-Nov-2015 14:24, Premature ventricular complexes are now present Reviewed by FLORES Bueno Narrative Procedure Note Amanuel Medeiros Jr., M.D. - 11/08/2023 IMPRESSION: Sinus rhythm Premature ventricular complexes Low voltage QRS in the chest leads Low anterior forces Marked ST abnormality, possible anterolateral subendocardial injury When compared with ECG of 27-Nov-2015 14:24, Premature ventricular complexes are now present Reviewed by FLORES Bueno us Meek Solano M.D. ECG ORDERABLES Final Result MUSE NA * CT Chest without IV Contrast (11/08/2023 12:01 PM CDT) Anatomical Region Laterality Modality Chest, Thoracic RST LOS, Tho racic ARZ LOS, Thoracic FLA LOS N/A Computed Tomography, Compute d Tomography Impressions 11/08/2023 12:13 PM CDT 1. Bilateral pulmonary nodules which are stable or only marginally larger than on exams back to 2010 should be benign. 2. 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 Narrative 11/08/2023 12:13 PM CDT EXAM: CT CHEST WITHOUT IV CONTRAST COMPARISON: 08/23/2023 and exams back to 03/05/2010. FINDINGS: Areas of mucus plugging and clustered nodularity greatest in the right middle lobe and lingula appears similar to 08/23/2023 and other recent exams. These findings have increased from earlier exams, and suggest an indolent infectious or inflammatory airway process. Nontuberculous mycobacterial infection might have this appearance. The 9 mm nodule in the right upper lobe (series 3, image 158) is unchanged from recent exams but slightly increased from 5 x 6 mm on 03/05/2010. The slow rate of change suggests this is likely benign. The approximately 11 mm noncalcified nodule in the left lower lobe (series 3, image 346) has been present since 2010. Therefore, this should be benign. Several other calcified pulmonary granulomas are also noted. No new or rapidly enlarging solid nodules. No adenopathy in the chest. Thyroidectomy. Right shoulder arthroplasty. Postoperative changes lower cervical and upper thoracic spine. Postoperative changes at the GE junction. Cholecystectomy. No aggressive osseous lesions are identified. us Meek Solano M.D. IMG CT PROCEDURES Final Resul t * (ABNORMAL) S-TSH (Thyroid-Stimulating Hormone - Sensitive) (06/24/2023 10:36 AM CDT) TSH, Sensitive 4.8(H) 0.3 - 4.2 mIU/L 06/24/2023 12:28 PM CDT [facility] Blood (Blood, Venous) 06/24/2023 10:36 AM CDT 06/24/2023 11:34 AM CDT us Arias Valdivia M.D. LAB BLOOD ADD-ON Final Res ult Performing Organization Address City/[facility]/ZIP Co de Phone Number [facility] [address] [place] [address], [facility] NPRG [address] [address] * Sodium (06/24/2023 10:36 AM CDT) Sodium, P 138 135 - 145 mmol/L 06/24/2023 12:30 PM CDT [facility] Blood (Blood, Venous) 06/24/2023 10:36 AM CDT 06/24/2023 11:34 AM CDT us Arias Valdivia M.D. LAB BLOOD ADD-ON Final Res ult [facility] [address] [place] [address], [facility] NPRG [address] [address] * Potassium (06/24/2023 10:36 AM CDT) Potassium, P 3.6 3.6 - 5.2 mmol/L 06/24/2023 12:30 PM CDT [facility] Blood (Blood, Venous) 06/24/2023 10:36 AM CDT 06/24/2023 11:34 AM CDT us Arias Valdivia M.D. LAB BLOOD ADD-ON Final Res ult Performing Organization Address City/[facility]/ZIP Co de Phone Number [facility] [address] [place] [address], [facility] NPRG [place] [address] [address] [place] [address] * Creatinine with Estimated GFR (06/24/2023 10:36 AM CDT) Creatinine 0.81 0.59 - 1.04 mg/dL 06/24/2023 12:30 PM CDT [facility] Estimated GFR (eGFR) 78 >=60 mL/min/BSA 06/24/2023 12:30 PM CDT [facility] Comment: Estimated GFR calculated using the 2020 CKD_EPI creatinine equation. Blood (Blood, Venous) 06/24/2023 10:36 AM CDT 06/24/2023 11:34 AM CDT us Arias Valdivia M.D. LAB BLOOD ADD-ON Final Res ult Performing Organization Address [facility]/ZIP Co de Phone Number [facility] [address] [place] [address], [facility]G [address] [address] * Glucose, Fasting (05/28/2022 10:54 AM CDT) Glucose, P 92 70 - 100 mg/dL 05/28/2022 11:36 AM CDT [facility] Last Intake 15 hr 05/28/2022 11:22 AM CDT [facility] Blood (Blood, Venous) 05/28/2022 10:54 AM CDT 05/28/2022 11:22 AM CDT us Arias Valdivia M.D. LAB BLOOD NON ADD-ON Final Result [facility] [address] [place] [address], [facility] NPRG [facility] [address] [place] [address] * BI Breast Screening Bilateral with Tomosynthesis (01/16/2021 10:28 AM SOCIAL PSYCHOLOGIST) Anatomical Region Laterality Modality Breast, Breast Imaging RST L OS, Breast Imaging ARZ LOS, Breast Imaging FLA LOS Bilateral Mammography 01/16/2021 11:2 5 AM SOCIAL PSYCHOLOGIST Impressions 01/16/2021 1:41 PM SOCIAL PSYCHOLOGIST Negative. RECOMMENDATION: ??Annual Screening Mammogram ASSESSMENT: ??BI-RADS: 2: Benign. Narrative 01/16/2021 1:41 PM SOCIAL PSYCHOLOGIST EXAM: ??BI BREAST SCREENING BILATERAL WITH TOMOSYNTHESIS Current study was evaluated with a Computer Aided Detection (CAD) system. INDICATION: ??Screening mammogram. COMPARISON: ??Prior exam(s) were available and reviewed for comparison. DENSITY: ??a. The breast(s) are almost entirely fatty. FINDINGS: ??No findings of malignancy. ??No significant change since prior exam. Biopsy clip and postoperative changes left breast. Procedure Note Marleen Leigh M.D. - 01/16/2021 EXAM: BI BREAST SCREENING BILATERAL WITH TOMOSYNTHESIS Current study was evaluated with a Computer Aided Detection (CAD) system. INDICATION: Screening mammogram. COMPARISON: Prior exam(s) were available and reviewed for comparison. DENSITY: a. The breast(s) are almost entirely fatty. FINDINGS: No findings of malignancy. No significant change since priorexam. Biopsy clip and postoperative changes left breast. IMPRESSION: Negative. RECOMMENDATION: Annual Screening Mammogram ASSESSMENT: BI-RADS: 2: Benign. Keysha Sanders M.D. IMG BI PROCEDURES Claire l Result from Last 3 Months or Most Recently Relevant to Health Maintenance Insurance [employer] Advance Directives For more information, please contact: [phone] Documents on File Type Date Recorded Patient Therapeutic Consultant Expl anation Advance Directives 02/23/2010 12:00 AM Leg acy document. See document viewer. Advance Directives 08/26/2006 12:00 AM Leg acy document. See document viewer. Advance Directives 08/22/2006 12:00 AM Leg acy document. See document viewer. * Full Code (Latest Code Status on File) Date Activated Date Inactivated Comments 10/02/2019 4:02 PM 10/03/2019 5:08 PM Question Answer Comments Full Code: Discussed Care Teams Motion Picture Narrator Relationship Specialty Start Date End Date Elsewhere, Pcp PCP - General Internal Medicine 03/21/22
--- OUTSIDE RECORDS SUMMARY | 2023-11-28 11:55 | XMS_ITS | Encounter Summary ---
Author Organization [facility] Address [address] [place] [address] Care Team Providers Care Record Pressman Name Role Phone Elsewhere, Pcp Primary Care Provider Unavailabl e Reason for Visit * Reason Onset Date Comments Previsit Preparation 11/04/2023 Encounter Details Date Type Department Care Team (Latest Contact Info) Description 11/04/2023 9:30 AM CDT Clinical Communication Virtual Review in [place], [place] [address] [place] [address] Previsit Preparation Social History Tobacco Use Types Packs/Day Years Used Date Smoking Tobacco: Former Cigarettes Q uit: 10/15/1972 Passive Smoke Exposure: Past Smokeless Tobacco: Never Tobacco Cessation:Counseling Given: Not Answered Alcohol Use Standard Drinks/Week Comments Yes 1 (1 standard drink = 0.6 oz pur e alcohol) [facility] Utilities Answer Date Recorded In the past 12 months has e electric, gas, oil, or water company threatened to shut off services in your [...] file 08/06/2019 How often do you attend islam or yazidi serv ices? Never 08/06/2019 Active Member of [...] Living Expenses Not hard at all 11/08/2018 [facility] [place] [facility] - Occupational Stress [...] Date Recorded Dental: Regular Dentist Yes 07/05/19 24 Employment Answer Date Recorded Employment status Unemployed/not in e paid workforce and NOT seeking employment 07/05/2023 Housing Stability Answer Date Recorded What is your living situation today? I have a [facility] place to live 07/05/2023 Education Answer Date Recorded What is the highest level of school you have completed or the highest degree you have received? Associate degree: occupational, technical, or vocational program 11/08/2018 Comments No Sex and Gender Information Value Date Recorded Sex Assigned at Female 06/20/2017 1:09 PM CDT Legal Sex Female 2:46 AM AUTOMOTIVE COLLISION ESTIMATOR Gender Identity Female 06/20/2017 1:09 PM CDT Sexual Orientation Straight 06/20/2017 1: 09 PM CDT documented as of this encounter Plan of Treatment Upcoming Encounters Date Type Department Care Team (Latest Contact Info) Description 12/07/2023 12:15 PM CDT Appointment Department of Cardiovascular Diseases in [place], [place] [address] [place] [phone] Meek Solano M.D. [address] [place] [phone] Discharge Disposition: Home or Self Care 12/07/2023 2:30 PM CDT Diagnostic Division of Pulmonary Medicine in [place], [place] [address] [place] [phone] Meek Solano M.D. [address] [place] [phone] 12/19/2023 10:40 AM AUTOMOTIVE COLLISION ESTIMATOR Appointment Department of Cardiovascular Diseases in [place], [place] [address] [place] [phone] Meek Solano M.D. [address] [place] [phone] 12/27/2023 4:30 PM AUTOMOTIVE COLLISION ESTIMATOR Appointment Division of Pulmonary Medicine in [place], [place] [address] [place] [address] [place] [address] Discharge Disposition: Home or Self Care documented as of this encounter Visit Diagnoses Not on filedocumented in this encounter Care Teams Record Pressman Relationship Specialty Start Date End Date Elsewhere, Pcp PCP - General Internal Medicine 03/21/22 documented as of this encounter
--- OUTSIDE RECORDS SUMMARY | 2023-11-28 11:55 | XMS_ITS ---
Author Organization [facility] Address [address] [place] [address] Care Team Providers Care Manager Contract Name Role Phone Elsewhere, Pcp Primary Care Provider Unavailabl e Active Problems * This document contains information received from the source organization and may not represent a complete record from that organization. 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 Asthma Chronic 10/28/2011 Keratosis Seborrheic 10/25/2011 Hypercholesterolemia 08/03/2011 Other Nonspecific Abnormal Finding Of Lung Field 08/03/2011 Overview (11/24/2017): Overview: Followed at [facility] Cancer Breast Ductal In Situ Left 04/05/2011 Stroke 06/01/2010 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 Past Plans No past plan information found. Radiation Treatments * No radiation treatments are documented for this patient in [facility]. Treatments may have been administered in another system. Lifetime Dose Tracking * Chemical Lifetime Dose Automatic Entry Manual Entr y Radiation 0.867 mGy 0.867 mGy 0 mGy Fluoro Time 7.55 minutes 7.55 minutes 0 minutes
--- OUTSIDE RECORDS SUMMARY | 2023-11-28 11:55 | XMS_ITS | Encounter Summary ---
Author Organization [facility] Address [address] [place] [address] Care Team Providers Care Goldbeater Name Role Phone Elsewhere, Pcp Primary Care Provider Unavailabl e Encounter Details Date Type Department Care Team (Late st Contact Info) Description 08/26/2023 Orders Only Division of Pulmonary Medicine in [place], [place] [address] [place] [phone] Meek Solano M.D. [address] [place] [phone] Social History Tobacco Use Types Packs/Day Years Used Date Smoking Tobacco: Former Cigarettes Q uit: 10/15/1972 Passive Smoke Exposure: Past Smokeless Tobacco: Never Alcohol Use Standard Drinks/Week Comments Yes 1 (1 standard drink = 0.6 oz pur e alcohol) [facility] Utilities Answer Date Recorded In the past 12 months has [facility] [employer], gas, oil, or water [employer] threatened to shut off services in your [...] file 08/06/2019 How often do you attend latter-day or anabaptism serv ices? Never 08/06/2019 Active Member of [...] Living Expenses Not hard at all 11/08/2018 [facility]ational Stress Questionnaire Answer Date Recorded [...] Answer Date Recorded Employment status Unemployed/not in th e paid workforce and NOT seeking employment 07/05/2023 Housing Stability Answer Date Recorded What is your living situation today? I have a [facility] place to live 07/05/2023 Education Answer Date Recorded What is the highest level of school you have completed or the highest degree you have received? Associate degree: occupational, technical, or vocational program 11/08/2018 Comments No Sex and Gender Information Value Date Recorded Sex Assigned at Female 06/20/2017 1:09 PM CDT Legal Sex Female 2:46 AM DIRECTOR TRUST Gender Identity Female 06/20/2017 1:09 PM CDT Sexual Orientation Straight 06/20/2017 1: 09 PM CDT documented as of this encounter Plan of Treatment Upcoming Encounters Date Type Department Care Team (Latest Contact Info) Description 12/07/2023 12:15 PM CDT Appointment Department of Cardiovascular Diseases in [place], [place] [address] [place] [phone] Meek Solano M.D. [address] [place] [phone] Discharge Disposition: Home or Self Care 12/07/2023 2:30 PM CDT Diagnostic Division of Pulmonary Medicine in [place], [place] [address] [place] [phone] Meek Solano M.D. [address] [place] [phone] 12/19/2023 10:40 AM DIRECTOR TRUST Appointment Department of Cardiovascular Diseases in [place], [place] [address] [place] [address] Meek Solano M.D. [address] [place] [phone] 12/27/2023 4:30 PM DIRECTOR TRUST Appointment Division of Pulmonary Medicine in [place], [place] [address] [place] [phone] Meek Solano M.D. [address] [place] [address] Discharge Disposition: Home or Self Care documented as of this encounter Visit Diagnoses Not on filedocumented in this encounter Care Teams Goldbeater Relationship Specialty Start Date End Date Elsewhere, Pcp PCP - General Internal Medicine 03/21/22 documented as of this encounter
--- OUTSIDE RECORDS SUMMARY | 2023-11-28 11:55 | XMS_ITS | Encounter Summary ---
Author Organization [facility] Address [address] [place] [address] Care Team Providers Care Legislative Aide Name Role Phone Elsewhere, Pcp Primary Care Provider Unavailabl e Reason for Referral * Outpatient (Routine) - Authorized Specialty Diagnoses / Procedures Referred By Contac t Referred To Contact Pulmonary Medicine Meek Solano M.D. 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 [address] [place] [phone] Phone: tel: fax: [facility] Referral ID Status Reason Start Date Expiration Date Visits Re quested Visits Authorized [id number] Closed 11/08/2023 11/07/2024 1 1 Encounter Details Date Type Department Care Team (Late st Contact Info) Description 11/08/2023 Orders Only Division of Pulmonary Medicine in [place], [place] [address] [place] [phone] Meek Solano M.D. 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 Never 08/06/2019 Active Member of [...] Living Expenses Not hard at all 11/08/2018 [facility] Occupat ional [facility] - Occupational Stress [...] money to buy more. Never true 07/05/19 Within the past 12 months, t he [...] your living situation today? I have a [facility] place to live 07/05/2023 Education Answer Date Recorded What is the highest level of school you have completed or the highest degree you have received? 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 [address] [place] [phone] Discharge Disposition: Home or Self Care 12/07/2023 2:30 PM CDT Diagnostic Division of Pulmonary Medicine in [place], [place] [address] [place] [phone] Meek Solano M.D. [address] [place] [phone] 12/19/2023 10:40 AM SEISMOGRAPH OPERATOR HELPER Appointment Department of Cardiovascular Diseases in [place], [place] [address] [place] [phone] Meek Solano M.D. [address] [place] [phone] 12/27/2023 4:30 PM SEISMOGRAPH OPERATOR HELPER Appointment Division of Pulmonary Medicine in [place], [place] [address] [place] [phone] Meek Solano M.D. 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 Shortness Of Breath Expected: 11/08/2023, Expires: 02/07/2025 Pulmonary Function Tests PFT Routine 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
--- OUTSIDE RECORDS SUMMARY | 2023-11-28 11:55 | XMS_ITS | Encounter Summary ---
Author Organization [facility] Address [address] [place] [address] Care Team Providers Care Analyst Market Intelligence Name Role Phone Elsewhere, Pcp Primary Care Provider Unavailabl e Encounter Details Date Type Department Care Team ([facility] st Contact Info) Description 11/10/2023 Clinical Communication Division of Pulmonary Medicine in [place], [place] [address] [place] [phone] Meek Solano M.D. [address] [place] [address] Social History Tobacco Use Types Packs/Day Years Used Date Smoking Tobacco: Former Cigarettes Q uit: 10/15/1972 Passive Smoke Exposure: Past Smokeless Tobacco: Never Alcohol Use Standard Drinks/Week Comments Yes 1 (1 standard drink = 0.6 oz pur e alcohol) [facility] Utilities Answer Date Recorded In the past 12 months has [facility] [employer], gas, oil, or water [employer] threatened to shut off services in your [...] file 08/06/2019 How often do you attend hinduism or gnosticism serv ices? Never 08/06/2019 Active Member of [...] hard at all 11/08/2018 [facility] - Occupational Stress Questionnaire [...] living situation today? I have a [facility] place to live 07/05/2023 Education Answer Date Recorded What is the highest level of school you have completed or the highest degree you have received? Associate degree: occupational, technical, or vocational program 11/08/2018 Comments No Sex and Gender Information Value Date Recorded Sex Assigned at Female 06/20/2017 1:09 PM CDT Legal Sex Female 2:46 AM MULTIMEDIA SERVICES COORDINATOR Gender Identity Female 06/20/2017 1:09 PM CDT Sexual Orientation Straight 06/20/2017 1: 09 PM CDT documented as of this encounter Miscellaneous Notes * Telephone Encounter - Angeli Gonzalez - 11/14/2023 4:06 PM CDT Found an opening on your schedule for December 26. Called pt & she is good with this. She is scheduled for f/u. Thank you. documented in this encounter Plan of Treatment Upcoming Encounters Date Type Department Care Team (Latest Contact Info) Description 12/07/2023 12:15 PM CDT Appointment Department of Cardiovascular Diseases in [place], [place] [address] [place] [address] Meek Solano M.D. 200 [place] [address] Discharge Disposition: Home or Self Care 12/07/2023 2:30 PM CDT Diagnostic Division of Pulmonary Medicine in [place], [place] [address] [place] [address] Meek Solano M.D. [address] [place] [address] 12/19/2023 10:40 AM MULTIMEDIA SERVICES COORDINATOR Appointment Department of Cardiovascular Diseases in [place], [place] [address] [place] [phone] Meek Solano M.D. [address] [place] [address] 12/27/2023 4:30 PM MULTIMEDIA SERVICES COORDINATOR Appointment Division of Pulmonary Medicine in [place], [place] [address] [place] [address] Meek Solano M.D. [address] [place] [address] Discharge Disposition: Home or Self Care documented as of this encounter Visit Diagnoses Not on filedocumented in this encounter Care Teams Analyst Market Intelligence Relationship Specialty Start Date End Date Elsewhere, Pcp PCP - General Internal Medicine 03/21/22 documented as of this encounter
--- OUTSIDE RECORDS SUMMARY | 2023-11-28 11:55 | XMS_ITS ---
Author Organization [facility] Address [address] [place] [address] Care Team Providers Care Cut Out And Marking Machine Operator Name Role Phone Unavailable Unavailable Unavailable Surgery Details Not on file Complications Check Surgery Details section. Procedure Estimated Blood Loss Check Surgery Details section. Procedure Findings Check Surgery Details section. Procedure Specimens Taken Check Surgery Details section.
--- OUTSIDE RECORDS SUMMARY | 2023-11-28 11:55 | XMS_ITS | Encounter Summary ---
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 [address] [place] [address] Phone: tel: fax: [facility] Referral ID Status Reason Start Date Expiration Date Visits Re quested Visits Authorized [id number] Closed 08/23/2023 08/22/2024 1 1 Encounter Details Date Type Department Care Team (Latest Contact Info) Description 11/08/2023 10:51 AM CDT - 11/08/2023 12:56 PM CDT Hospital Encounter Department of Radiology, [facility] in [place], [place] [address] [place] [address] Meek Solano M.D. 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 Never 08/06/2019 Active Member of [...] Living Expenses Not hard at all 11/08/2018 [facility] of Occupat ional Health - Occupational [...] your living situation today? I have a [facility] place to live 07/05/2023 Education Answer Date Recorded What is the highest level of school you have completed or the highest degree you have received? 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 40 tablet 2 0 albuterol 90 mcg/actuation inhalerIndicatio ns:Asthma Chronic (HCC) Inhale 2 puffs every 6 (six) hours as needed for wheezing. 18 g 3 01/23/[address] tablet Take 81 mg by mouth daily. benzonatate (TESSALON PERLES) 100 mg capsule Take 100 mg by mouth 3 (three) times a day as needed. 1 calcitRIOL (ROCALTROL) 0.5 mcg capsule TAKE 3 CAPSULES IN THE MORNING AND 2 CAPSULES IN THE EVENING DIRECTED 500 capsule 3 4 calcium carbonate 1,500 mg (600 mg calcium) tablet Take 3 tablets (1,800 mg of calcium total) by mouth 3 (three) times a day. 0 cholecalciferol (for_VITAMIN D3) 1,000 Unit tablet Take 1 tablet by mouth daily. 6 codeine-guaiFENe sin (ROBITUSSIN-AC) 10-100 mg/5 mL liquid TAKE 10ML BY MOUTH EVERY 4-6 HOURS NEEDED FOR COUGH. cyanocobalamin (VITAMIN B12) 1,000 mcg/mL injection Inject intramuscularly every 30 (thirty) days. cyclobenzaprine (for_FLEXERIL) 10 mg tablet Take 1 tablet by mouth 3 (three) times a day as needed for muscle spasms. 7 docusate sodium (COLACE) 100 mg capsule Take 3 capsules by mouth daily. 2 fluticasone propionate (Flonase) 50 mcg/actuation nasal spray Administer 2 sprays into each nostril daily. 16 g 11 4 furosemide (LASIX) 20 mg tablet Take 20 mg by mouth daily. KETAMINE 5%, LIDOCAINE 5%-PLO Apply topically 3 (three) times a day as needed. lidocaine (LIDODERM) 5 % Place 1 patch on the skin daily as needed (pain). Remove & discard patch within 12 hours or as directed by . 150 patch 3 8 melatonin 5 mg tablet Take 1 tablet by mouth at bedtime as needed (sleep aid). 7 mometasone 0.033 %-ipratropium 0.02 %-diphenhydramin e 0.033 % nasal spray Administer 2 sprays into each nostril 2 (two) times a day. Shake very well prior to each use. 75 mL 3 2 mometasone 0.033 %-ipratropium 0.02 %-diphenhydramin e 0.033 % nasal spray Administer 2 sprays into each nostril 2 (two) times a day. Shake very well prior to each use. 84 mL 3 4 multivitamin tablet Take 1 tablet by mouth daily. nortriptyline (PAMELOR) 10 mg capsule Take 1 capsule (10 mg total) by mouth at bedtime. 30 capsule 11 2 omeprazole (PriLOSEC) [address] capsuleIndicatio ns:Gastroesophag eal Reflux Disease Without Esophagitis TAKE 1 CAPSULE TWICE A DAY BEFORE BREAKFAST AND DINNER 200 capsule 3 4 potassium chloride (KLORCON/K-TAB) 10 mEq ER tabletIndication s:Hypokalemia Take 3 tablets (30 mEq total) by mouth 2 (two) times a day with meals. 640 tablet 3 4 promethazine (PHENERGAN) 12.5 mg tablet Take 12.5-25 mg by mouth as needed for nausea. 8 Synthroid 125 mcg tablet Take 125 mcg by mouth every morning before breakfast. 3 traMADoL (ULTRAM) 50 mg tablet Take 50 mg by mouth every 4 (four) hours as needed for pain. triamterene-hydr oCHLOROthiazide (Maxzide-25) 37.5-25 mg per tablet take 1 tablet daily 100 tablet 3 4 documented as of this encounter Plan of Treatment Upcoming Encounters Date Type Department Care Team (Latest Contact Info) Description 12/07/2023 12:15 PM CDT Appointment Department of Cardiovascular Diseases in [place], [place] [address] [place] [address] Meek Solano M.D. [address] [place] [phone] Discharge Disposition: Home or Self Care 12/07/2023 2:30 PM CDT Diagnostic Division of Pulmonary Medicine in [place], [place] [address] [place] [phone] Meek Solano M.D. [address] [place] [phone] 12/19/2023 10:40 AM MONEY MARKET CLERK Appointment Department of Cardiovascular Diseases in [place], [place] [address] [place] [phone] Meek Solano M.D. [address] [place] [phone] 12/27/2023 4:30 PM MONEY MARKET CLERK Appointment Division of Pulmonary Medicine in [place], [place] [address] [place] [phone] Meek Solano M.D. 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 No aggressive osseous lesions are identified. 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
--- OUTSIDE RECORDS SUMMARY | 2023-11-28 11:55 | XMS_ITS | Encounter Summary ---
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 [address] [place] [address] Phone: tel: fax: [facility] Referral ID Status Reason Start Date Expiration Date Visits Re quested Visits Authorized [id number] Closed 11/08/2023 11/07/2024 1 1 Encounter Details Date Type Department Care Team (Latest Contact Info) Description 11/09/2023 7:34 AM CDT - 11/09/2023 11:59 PM CDT Hospital Encounter Division of Pulmonary Medicine in [place], [place] [address] [place] [phone] Chapincito Singer M.D. 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 Never 08/06/2019 Active Member of [...] Living Expenses Not hard at all 11/08/2018 [employer] [place] [facility] - Occupational Stress [...] your living situation today? I have a [facility] place to live 07/05/2023 Education Answer Date Recorded What is the highest level of school you have completed or the highest degree you have received? 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 150 patch 3 8 melatonin 5 mg [...] 3 4 documented as of this encounter OR Notes * Op Note - Chapincito Singer M.D. 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 The flexible bronchoscope was advanced into the oropharynx, we inspected the larynx and into the trachea. The right and left tracheobronchial trees were inspected. Anatomy was normal, no excessive dynamic airway collapse and only modestly increased secretions. The scope was wedged in the right middle lobe and 100 mL of saline instilled with 40 mL of return. There were a few very small tubular strands of organized plugs of mucus in the lavage fluid. She tolerated the procedure well with no complication. Specimens ID Type Source Tests Collected by Time A : Right Middle Lobe Lavage Bronchoalveolar Lavage FUNGAL CULTURE, ROUTINE, GRAM STAIN, ACID FAST SMEAR FOR MYCOBACTERIUM, FUNGAL SMEAR, MYCOBACTERIAL CULTURE, V, BACTERIAL CULTURE, AEROBIC + SUSC, RESP, CELL COUNT AND DIFFERENTIAL, BROCHOALVEOLAR LAVAGE, CYTOLOGY NON-OFFICE SECRETARY Chapincito Singer M.D. 11/09/19 24 0935 Drains None Estimated Blood Loss None Implants None Chapincito Singer M.D. documented in this encounter Plan of Treatment Upcoming Encounters Date Type Department Care Team (Latest Contact Info) Description 12/07/2023 12:15 PM CDT Appointment Department of Cardiovascular Diseases in [place], [place] [address] [place] [address] Meek Solano M.D. [address] [place] [address] Discharge Disposition: Home or Self Care 12/07/2023 2:30 PM CDT Diagnostic Division of Pulmonary Medicine in [place], [place] [address] [place] [address] Meek Solano M.D. [address] [place] [phone] 12/19/2023 10:40 AM MANAGER INTERNET Appointment Department of Cardiovascular Diseases in [place], [place] [address] [place] [phone] Meek Solano M.D. [address] [place] [phone] 12/27/2023 4:30 PM MANAGER INTERNET Appointment Division of Pulmonary Medicine in [place], [place] [address] [place] [address] Meek Solano M.D. 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 Once for 1 Occurrences starting 11/09/2023 until 11/09/2023 Glucose, POCT Point of Care Testing-Docked Device Routine Routine lab collection (next collection) for 1 Occurrences starting 11/09/2023 until 11/09/2023 documented as of this encounter Procedures Procedure Name Priority Date/Time Associated Diagnosis Comments CYTOLOGY NON-OFFICE SECRETARY Routine 11/09/2023 9:35 AM CDT Infiltrate Pulmonary [...] 9:35 AM CDT 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 [address] [place] [address] * Cell Count and Differential, Bronchoalveolar Lavage (11/09/2023 9:35 AM CDT) Fluid Type BAL DEFAULT 11/09/2023 10:41 AM CDT DHPM Gross appearance Cloudy 11/09/19 24 10:41 AM CDT DHPM Total Nucleated Cells 9.6 x10(6) 11/09/2023 10:41 AM CDT DH Comment: Count approximate due to pellicle. ----REFERENCE VALUE---- The reference range and other method performance specifications have not been established for this body fluid. The test result must be integrated into the clinical context for interpretation. ----ADDITIONAL INFORMATION---- This test has been modified from the lapeler's instructions. Its performance characteristics were determined by [facility] in a manner consistent with CLIA requirements. This test has not been cleared or approved by the U.S. Food and Drug Administration. Volume Recovered 35 mL 11/09/19 10:41 AM CDT DH Alveolar Macrophage 43 % 11/08 11:21 AM CDT DHPM Comment: ----REFERENCE VALUE---- The reference range and other method performance specifications have not been established for this body fluid. The test result must be integrated into the clinical context for interpretation. Lymphocytes 46 % 11/09/2023 11:21 AM CDT [facility] Comment: ----REFERENCE VALUE---- The reference range and other method performance specifications have not been established for this body fluid. The test result must be integrated into the clinical context for interpretation. Neutrophils 2 % 11/09/2023 11:21 AM CDT [facility] Comment: ----REFERENCE VALUE---- The reference range and other method performance specifications have not been established for this body fluid. The test result must be integrated into the clinical context for interpretation. Eosinophils 1 % 11/09/2023 11:21 AM CDT [facility] Comment: ----REFERENCE VALUE---- The reference range and other method performance specifications have not been established for this body fluid. The test result must be integrated into the clinical context for interpretation. Other Cells 8 % 11/09/2023 11:21 AM CDT [facility] Comment: ----REFERENCE VALUE---- The reference range and other method performance specifications have not been established for this body fluid. The test result must be integrated into the clinical context for interpretation. Comment See Comment 11/09/2023 11:21 AM CDT [facility] Comment:Others are lining ce lls. Lavage (Bronchoalveolar Lavage) 11/09/2023 9:35 AM CDT Meek Solano M.D. LAB BODY FLUIDS AND STOOLS OR DERABLES Final Result Performing Organization Address City/[facility]/ZIP Co de Phone Number [facility] [address] [place] [address], [facility] [address] [place] [address] * Bacterial Culture, Aerobic + Susceptibility, Respiratory (11/09/2023 9:35 AM CDT) Bacterial Culture, Aerobic, Resp Upper respiratory/or al microbiota 11/15/2023 10:02 AM CDT DTL Lavage (Bronchoalveolar Lavage) 11/09/2023 9:35 AM CDT Meek Solano M.D. LAB MICROBIOLOGY - GENERAL OR DERABLES Final Result Performing Organization Address [facility] Co de Phone Number [facility] [address] [place] [address], [facility] [address] [place] [address] * Fungal Smear (11/09/2023 9:35 AM CDT) Fungal Smear Negative. 11/09/2023 2:54 PM CDT DTL Lavage (Bronchoalveolar Lavage) 11/09/2023 9:35 AM CDT us Meek Solano M.D. LAB MICROBIOLOGY - GENERAL OR DERABLES Final Result Performing Organization Address City/[facility]/ZIP Co de Phone Number [facility] [address] [place] [address], [facility] [address] [place] [address] * Acid Fast Smear for Mycobacterium (11/09/2023 9:35 AM CDT) Acid Fast Smear For Mycobacterium Negative. 11/09/2023 3:53 PM CDT DTL Lavage (Bronchoalveolar Lavage) 11/09/2023 9:35 AM CDT Meek Solano M.D. LAB MICROBIOLOGY - GENERAL OR DERABLES Final Result Performing Organization Address City/[facility]/ZIP Co de Phone Number [facility] [address] [place] [address], [facility] [address] [place] [address] * Gram Stain (11/09/2023 9:35 AM CDT) Gram Stain No organisms seen. White blood cells, Present. 11/09/2023 11:50 AM CDT DTL Lavage (Bronchoalveolar Lavage) 11/09/2023 9:35 AM CDT Meek Solano M.D. 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 documented in this encounter Administered Medications Inactive Administered Medications - up to 3 most recent administrations Medication Order MAR Action Action Date Dose Rate Site benzocaine 20 % mouth spray (HurriCaine) As needed, Starting on Tue11/09/23 at 0926, Intra-Op Given 11/09/2023 9:26 AM CDT 4 sprays fentaNYL injection (Sublimaze) intravenous, As needed, Starting on Tue11/09/23 at 0925, Intra-Op Given 11/09/2023 9:25 AM CDT 50 mcg fentaNYL injection (Sublimaze) intravenous, As needed, Starting on Tue11/09/23 at 0931, Intra-Op Given 11/09/2023 9:31 AM CDT 25 mcg Lactated Ringer's 75 mL/hr, intravenous, Continuous, Starting on Tue11/09/23 at 0830, Pre-Op New Bag 11/09/2023 9:04 AM CDT 75 mL/hr 75 mL/h r lidocaine 10 mg/mL (1 %) injection (Xylocaine) As needed, Starting on Tue11/09/23 at 0938, Intra-Op Given 11/09/2023 9:38 AM CDT 17 mL midazolam (PF) injection (Versed) As needed, Starting on Tue11/09/23 at 0925, Intra-Op Given 11/09/2023 9:25 AM CDT 2 mg midazolam (PF) injection (Versed) As needed, Starting on Tue11/09/23 at 0931, Intra-Op Given 11/09/2023 9:31 AM CDT 1 mg documented in this encounter Care Teams Reclamation Worker Relationship Specialty Start Date End Date Elsewhere, Pcp PCP - General Internal Medicine 03/21/22 documented as of this encounter
--- OUTSIDE RECORDS SUMMARY | 2023-11-28 11:55 | XMS_ITS | Encounter Summary ---
Author Organization [facility] Address [address] [place] [address] Care Team Providers Care Power Generating Plant Operator Name Role Phone Elsewhere, Pcp Primary Care Provider Unavailabl e Reason for Visit * Reason Comments Med Refill Encounter Details Date Type Department Care Team ([facility] st Contact Info) Description 09/23/2023 Refill Division of Endocrinology in [place], [place] [address] [place] [phone] Arias Valdivia M.D. [address] [place] [address] Med Refill Social History Tobacco Use Types Packs/Day Years Used Date Smoking Tobacco: Former Cigarettes Q uit: 10/15/1972 Passive Smoke Exposure: Past Smokeless Tobacco: Never Alcohol Use Standard Drinks/Week Comments Yes 1 (1 standard drink = 0.6 oz pur e alcohol) [facility] Utilities Answer Date Recorded In the past 12 months has e [employer], gas, oil, or water [employer] threatened to shut off services in your [...] file 08/06/2019 How often do you attend zoroastrianism or mosque serv ices? Never 08/06/2019 Active Member of [...] Living Expenses Not hard at all 11/08/2018 [facility] - Occupational Stress Questionnaire Answer Date Recorded [...] your living situation today? I have a [facility] place to live 07/05/2023 Education Answer Date Recorded What is the highest level of school you have completed or the highest degree you have received? Associate degree: occupational, technical, or vocational program 11/08/2018 Comments No Sex and Gender Information Value Date Recorded Sex Assigned at Female 06/20/2017 1:09 PM CDT Legal Sex Female 2:46 AM BIAS BINDING FOLDER Gender Identity Female 06/20/2017 1:09 PM CDT Sexual Orientation Straight 06/20/2017 1: 09 PM CDT documented as of this encounter Plan of Treatment Upcoming Encounters Date Type Department Care Team (Latest Contact Info) Description 12/07/2023 12:15 PM CDT Appointment Department of Cardiovascular Diseases in [place], [place] [address] [place] [address] Meek Solano M.D. [address] [place] [phone] Discharge Disposition: Home or Self Care 12/07/2023 2:30 PM CDT Diagnostic Division of Pulmonary Medicine in [place], [place] [address] [place] [address] Meek Solano M.D. [address] [place] [phone] 12/19/2023 10:40 AM BIAS BINDING FOLDER Appointment Department of Cardiovascular Diseases in [place], [place] [address] [place] [address] Meek Solano M.D. [address] [place] [phone] 12/27/2023 4:30 PM BIAS BINDING FOLDER Appointment Division of Pulmonary Medicine in [place], [place] [address] [place] [address] Meek Solano M.D. [address] [place] [address] Discharge Disposition: Home or Self Care documented as of this encounter Visit Diagnoses Not on filedocumented in this encounter Care Teams Power Generating Plant Operator Relationship Specialty Start Date End Date Elsewhere, Pcp PCP - General Internal Medicine 03/21/22 documented as of this encounter
--- OUTSIDE RECORDS SUMMARY | 2023-11-28 11:55 | XMS_ITS | Referral Summary ---
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 For routine questions regarding patient records, call [phone] during business hours, M-F 8:00 AM - 5:00 PM Central Time. Record requests for emergency care only can be directed to [phone] at any time.[facility] Encounters Date Type Department Care Team Description 11/10/2023 Clinical Communication Division of Pulmonary Medicine in [place], [place] [address] [place] [address] Meek Solano M.D. 11/09/2023 7:34 AM CDT - 11/09/2023 11:59 PM CDT Hospital Encounter Division of Pulmonary Medicine in [place], [place] [address] [place] [address] Chapincito Singer M.D. 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 Discharge Disposition: Home or Self Care 11/04/2023 9:30 AM CDT Clinical Communication Virtual Review in [place], [place] [address] [place] [address] Previsit Preparation 09/23/2023 Refill Division of Endocrinology in [place], [place] [address] [place] [phone] Arias Valdivia M.D. Med Refill from Last 3 Months Allergies Active Allergy Reactions Criticality Noted Date [...] by mouth every morning before breakfast. 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 08/21/2008 Hernia Abdominal Wall 06/08/2006 Anemia Iron Deficiency 03/01/2006 Gallstone Without Obstruction 10/09/2003 Overview (11/24/2017): Overview: LW Modifier: s/p cholecystectomy 10-09-03 LW Onset: [id number] ; Gallstones Hypoparathyroidism 07/05/2003 Hypothyroidism 11/14/2002 Overview (11/24/2017): Overview: LW Onset: [id number] ; Hypothyroidism On Replacement Limitation Of Motion Shoulder Joint Right Arthroplasty Total Shoulder Replacement Status P ost Right Immunizations Name Administration Dates Next Due Influenza [...] quad (FLUZONE/FLUARIX) (6 months and older)(PF) 11/26/2016,11/27/2015,12/06/2014 Social History Tobacco Use Types Packs/Day Years Used Date Smoking Tobacco: Former Cigarettes Q uit: 10/15/1972 Passive Smoke Exposure: Past Smokeless Tobacco: Never Tobacco Cessation:Counseling Given: Not Answered Alcohol Use Standard Drinks/Week Comments Yes 1 (1 standard drink = 0.6 oz pur e alcohol) [facility] Utilities Answer Date Recorded In the past 12 months has e [employer], gas, oil, or water [employer] threatened to shut off services in your [...] file 08/06/2019 How often do you attend jehovah's witness or protestant serv ices? Never 08/06/2019 Active Member of [...] Living Expenses Not hard at all 11/08/2018 [facility] of Occupat ional Health - Occupational Stress [...] your living situation today? I have a [facility] place to live 07/05/2023 Education Answer Date Recorded What is the highest level of school you have completed or the highest degree you have received? Associate degree: occupational, technical, or vocational program 11/08/2018 Comments No Sex and Gender Information Value Date Recorded Sex Assigned at Female 06/20/2017 1:09 PM CDT Legal Sex Female 2:46 AM [employer] TUB W[employer] Gender Identity Female 06/20/2017 1:09 PM CDT [...] CDT Appointment Department of Cardiovascular Diseases in [place], [place] [address] [place] [address] Meek Solano M.D. [address] [place] [phone] Discharge Disposition: Home or Self Care 12/07/2023 2:30 PM CDT Diagnostic Division of Pulmonary Medicine in [place], [place] [address] [place] [phone] Meek Solano M.D. [address] [place] [phone] 12/19/2023 10:40 AM [employer] TUB W[employer]ER Appointment Department of Cardiovascular Diseases in [place], [place] [address] [place] [phone] Meek Solano M.D. [address] [place] [phone] 12/27/2023 4:30 PM [employer] T[employer] W[employer]ER Appointment Division of Pulmonary Medicine in [place], [place] [address] [place] [phone] Meek Solano M.D. [address] [place] [phone] Discharge Disposition: Home or Self Care Medical Devices Implanted Type Area Customer Records Division Supervisor Device Identifier Shelf Expiration Date Model / [...] Fix Stn Ss Sngl End 9x3.2 - [id number] Implanted:Qty: 1 on 10/02/2019 at [facility] Hardware e.g. pins/screw s/rods Right: Shoulder [employer] [id number] / / [id number] Mini Ream Guide Comp Sep - [id number] Implanted:Qty: 1 on 10/02/2019 at [facility] Hardware e.g. pins/screw s/rods Right: Shoulder [employer] 01/10/2027 [id number] / / [id number] Scrw Mini Ream Guide Comp Sep - [id number] Implanted:Qty: 1 on 10/02/2019 at [facility] Hardware e.g. pins/screw s/rods Right: Shoulder [employer] 03/20/2029 [id number] / / [id number] Drl [facility] Shldr Sep 2.7 [id number] Implanted:Qty: 1 on 10/02/2019 at [facility] Hardware e.g. pins/screw s/rods Right: Shoulder [employer] 10/29/2028 [id number] / / [id number] Screw 3.5 Hex Lck 4.75x15 - [id number] Implanted:Qty: 1 on 10/02/2019 at [facility] Hardware e.g. pins/screw s/rods Right: Shoulder [employer] 08/30/2029 [id number] / / [id number] Screw 3.5 Hex Lck 4.75x15 - [id number] Implanted:Qty: 1 on 10/02/2019 at [facility] Hardware e.g. pins/screw s/rods Right: Shoulder [employer] 08/26/2029 [id number] / / [id number] Scrw Cmp 6.5x30 - [id number] Implanted:Qty: 1 on 10/02/2019 at [facility] Hardware e.g. pins/screw s/rods Right: Shoulder [employer] 08/20/2029 [id number] / / [id number] Screw 3.5 Hex Lck 4.75x15 - [id number] Implanted:Qty: 1 on 10/02/2019 at [facility] Hardware e.g. pins/screw s/rods Right: Shoulder [employer] 09/03/2029 [id number] / / [id number] Scrw Lck 4.75x40 - [id number] Implanted:Qty: 1 on 10/02/2019 at [facility] Hardware e.g. pins/screw s/rods Right: Shoulder [employer] 10/24/2028 [id number] / / [id number] Imaging Marker-05/23/2014 Implanted:2014 (Quantity not on file) Imaging Marker Breast Description:Device Status Te xt - BreastOth. Left marker. Conversions - Default Historical Implant Device Implanted:2014 (Quantity not on file) Misc Other Description:Device Status Te xt - MiscOther. medical clip abdomen. Bsplt Glnd Cmp Rv Aug Sm - [id number] Implanted:Qty: 1 on 10/02/2019 at [facility] Shoulder Implant Right: Shoulder [employer] 05/17/2023 [id number] / / [id number] Bsplt Glnd Cmp 36 - [id number] Implanted:Qty: 1 on 10/02/2019 at [facility] Shoulder Implant Right: Shoulder [employer] 04/17/2029 [id number] / / [id number] Hum Tr Cmp Rvrs Std +6 - [id number] Implanted:Qty: 1 on 10/02/2019 at [facility] Shoulder Implant Right: Shoulder [employer] 03/09/2029 [id number] / / [id number] Hum Stm Cmp Tahir 11 - [id number] Implanted:Qty: 1 on 10/02/2019 at [facility] Shoulder Implant Right: Shoulder [employer] 01/26/2029 [id number] / / [id number] Hum [place] Cmp Vve Rvrs Std 36 - [id number] Implanted:Qty: 1 on 10/02/2019 at [facility] Shoulder Implant Right: Shoulder [employer] [id number] 07/07/2024 [id number] / / [id number] Screw Locking Tit. Transconnector - [place] [id number] Implanted:Qty: 2 on 02/19/2010 Spine Implant Depuy Synthes Description:Device Manufactu rer - Synthes. Device Status Text - [id number] [id number]. Screw Canc. Polyaxial 4.5 X 22mm - [place] [id number] Implanted:Qty: 3 on 02/19/2010 Spine Implant Depuy Synthes Description:Device Manufactu rer - Synthes. Device Status Text - [id number] [id number]. Reji Ti Cervical Synthes 3.5x240 - [place] [id number] Implanted:Qty: 2 on 02/19/2010 Spine Implant Depuy Synthes Description:Device Manufactu rer - Synthes. Device Status Text - SPINE [id number]. Transconnector-T op Loading Sz Medium - [place] [id number] Implanted:Qty: 1 on 02/19/2010 Spine Implant Depuy Synthes Description:Device Manufactu rer - Synthes. Device Status Text - [id number] [id number]. Screw Canc. Polyaxial 3.5 X 14mm - [place] [id number] Implanted:Qty: 2 on 02/19/2010 Spine Implant Depuy Synthes Description:Device Manufactu rer - Synthes. Device Status Text - SPINE [id number]. Screw Canc. Polyaxial 4.5 X 26mm - [place] [id number] Implanted:Qty: 2 on 02/19/2010 Spine Implant Depuy Synthes Description:Device Manufactu rer - Synthes. Device Status Text - SPINE [id number]. Screw Canc. Polyaxial 3.5 X 12mm - [place] [id number] Implanted:Qty: 6 on 02/19/2010 Spine Implant Depuy Synthes Description:Device Manufactu rer - Synthes. Device Status Text - SPINE [id number]. Screw Locking Ti - [place] [id number] Implanted:Qty: 13 on 02/19/2010 Spine Implant Depuy Synthes Description:Device Manufactu rer - Synthes. Device Status Text - SPINE [id number]. Screw Canc. Polyaxial 4.0 X 16mm - [place] [id number] Implanted:Qty: 2 on 02/19/2010 Spine Implant Depuy Synthes Description:Device Manufactu rer - Synthes. Device Status Text - SPINE [id number]. Nut Locking Titanium Transconnector - [place] [id number] Implanted:Qty: 2 on 02/19/2010 Spine Implant Depuy Synthes Description:Device Manufactu rer - Synthes. Device Status Text - SPINE [id number]. Conversions - Default Historical Implant Device - [place] [id number] Implanted:2014 (Quantity not on file) Spine Implant Description:Device Status Te xt - SPINE [id number]. screws rods pins in neck/spine. Procedures Procedure Name Priority Date/Time Associated Diagnosis Comments CYTOLOGY NON-HOSPITAL LIBRARIAN Routine 11/09/2023 9:35 AM CDT Infiltrate Pulmonary [...] Vitamin B12 COLONOSCOPY Routine 01/18/2022 3:56 PM [employer] T[employer] W[employer]ER Screening Cancer Colon BI BREAST SCREENING BILATERAL WITH TOMOSYNTHESIS RAD - Routine (most inpatients and all outpatients) 01/16/2021 10:28 AM LARD TUB W[employer]ER Screening Mammogram Average Risk Patient Density Breast from Last 3 Months or Most Recently Relevant to Health Maintenance Results * Cytology Non-HOSPITAL LIBRARIAN (11/09/2023 9:35 AM CDT) 11/10/2023 2:44 PM [...] Solano M.D. LAB SURG PATH ORDERABLES Claire l Result [facility] [address] [place] [address], [facility] DTL [address] [place] [address] * Cell Count and Differential, Bronchoalveolar Lavage (11/09/2023 9:35 AM CDT) Fluid Type BAL DEFAULT 11/09/2023 10:41 AM CDT [facility] Gross appearance Cloudy 11/09/19 24 10:41 AM CDT [facility] Total Nucleated Cells 9.6 x10(6) 11/09/2023 10:41 AM CDT [facility] Comment: Count approximate due to pellicle. ----REFERENCE VALUE---- The reference range and other method performance specifications have not been established for this body fluid. The test result must be integrated into the clinical context for interpretation. ----ADDITIONAL INFORMATION---- This test has been modified from the security team lead's instructions. Its performance characteristics were determined by [facility] in a manner consistent with CLIA requirements. This test has not been cleared or approved by the U.S. Food and Drug Administration. Volume Recovered 35 mL 11/09/19 24 10:41 AM CDT [facility] Alveolar Macrophage 43 % 11/08 11:21 AM CDT [facility] Comment: ----REFERENCE VALUE---- The reference range and other method performance specifications have not been established for this body fluid. The test result must be integrated into the clinical context for interpretation. Lymphocytes 46 % 11/09/2023 11:21 AM CDT [facility] Comment: ----REFERENCE VALUE---- The reference range and other method performance specifications have not been established for this body fluid. The test result must be integrated into the clinical context for interpretation. Neutrophils 2 % 11/09/2023 11:[address] [facility] Comment: ----REFERENCE VALUE---- The reference range and other method performance specifications have not been established for this body fluid. The test result must be integrated into the clinical context for interpretation. Eosinophils 1 % 11/09/2023 11:[address] [facility] Comment: ----REFERENCE VALUE---- The reference range and other method performance specifications have not been established for this body fluid. The test result must be integrated into the clinical context for interpretation. Other Cells 8 % 11/09/2023 11:[address] [facility] Comment: ----REFERENCE VALUE---- The reference range and other method performance specifications have not been established for this body fluid. The test result must be integrated into the clinical context for interpretation. Comment See Comment 11/09/2023 11:21 AM [facility] Comment:Others are lining ce lls. Lavage (Bronchoalveolar Lavage) 11/09/2023 9:35 AM CDT Meek Solano M.D. LAB BODY FLUIDS AND STOOLS OR DERABLES Final Result Performing Organization Address City/[facility]/ZIP Co de Phone Number [facility] [address] [place] [address], [facility] [address] [place] [address] * Bacterial Culture, Aerobic + Susceptibility, Respiratory (11/09/2023 9:35 AM CDT) Bacterial Culture, Aerobic, Resp Upper respiratory/or al microbiota 11/15/2023 10:02 AM CDT DTL Lavage (Bronchoalveolar Lavage) 11/09/2023 9:35 AM CDT Meek Solano M.D. LAB MICROBIOLOGY - GENERAL OR DERABLES Final Result Performing Organization Address City/[facility]/ZIP Co de Phone Number [facility] [address] [place] [address], [facility] DTL [facility] [address] [place] [id number] * Fungal Smear (11/09/2023 9:35 AM CDT) Fungal Smear Negative. 11/09/2023 2:54 PM CDT DTL Lavage (Bronchoalveolar Lavage) 11/09/2023 9:35 AM CDT us Meek Solano M.D. LAB MICROBIOLOGY - GENERAL OR DERABLES Final Result [facility] [address] [place] [address], [facility] [address] [place] [address] * Acid Fast Smear for Mycobacterium (11/09/2023 9:35 AM CDT) Acid Fast Smear For Mycobacterium Negative. 11/09/2023 3:53 PM CDT DTL Lavage (Bronchoalveolar Lavage) 11/09/2023 9:35 AM CDT us Meek Solano M.D. LAB MICROBIOLOGY - GENERAL OR DERABLES Final Result Performing Organization Address City/[facility]/ZIP Co de Phone Number [facility] [address] [place] [address], [facility] [address] [place] [address] * Gram Stain (11/09/2023 9:35 AM CDT) Gram Stain No organisms seen. White blood cells, Present. 11/09/2023 11:50 AM CDT DTL Lavage (Bronchoalveolar Lavage) 11/09/2023 9:35 AM CDT us Meek Solano M.D. LAB MICROBIOLOGY - GENERAL OR DERABLES Final Result Performing Organization Address City/[facility]/ZIP Co de Phone Number [facility] [address] [place] [address], [facility] [address] [place] [address] * ECG 12 Lead (11/08/2023 2:56 PM CDT) Ventricular Rate ECG/Min 83 BPM MUSE CO Interval 158 ms MUSE QRSD Interval 64 ms MUSE QT Interval 388 ms MUSE QTC Interval 455 ms MUSE P [place] 44 degrees MUSE R [place] -7 degrees MUSE T Wave [place] 40 degrees MUSE 11/08/2023 2:56 PM CDT [...] M.D. LAB BLOOD ADD-ON Final Res ult [facility] [address] [place] [address], [place] [facility] [address] [place] [address] * Sodium (06/24/2023 10:36 AM CDT) Sodium, P 138 135 - 145 mmol/L 06/24/2023 12:30 PM CDT [facility] Blood (Blood, Venous) 06/24/2023 10:36 AM CDT 06/24/2023 11:34 AM CDT us Arias Valdivia M.D. LAB BLOOD ADD-ON Final Res ult [facility] [address] [place] [address], [facility] NPRG [place] [address] [address] [place] [address] * Potassium (06/24/2023 10:36 AM CDT) Potassium, P 3.6 3.6 - 5.2 mmol/L 06/24/2023 12:30 PM CDT [facility] Blood (Blood, Venous) 06/24/2023 10:36 AM CDT 06/24/2023 11:34 AM CDT us Arias Valdivia M.D. LAB BLOOD ADD-ON Final Res ult Performing Organization Address [facility]/ZIP Co de Phone Number [facility] [address] [place] [address], [facility] NPRG [address] [address] * Creatinine with Estimated GFR (06/24/2023 10:36 AM CDT) Creatinine 0.81 0.59 - 1.04 mg/dL 06/24/2023 12:30 PM CDT [facility] Estimated GFR (eGFR) 78 >=60 mL/min/BSA 06/24/2023 12:30 PM CDT [facility] Comment: Estimated GFR calculated using the 2020 CKD_EPI creatinine equation. Blood (Blood, Venous) 06/24/2023 10:36 AM CDT 06/24/2023 11:34 AM CDT us Arias Valdivia M.D. LAB BLOOD ADD-ON Final Res ult [facility] [address] [place] [address], [facility] NPRG [facility] [address] [place] [address] * Glucose, Fasting (05/28/2022 10:54 AM CDT) Glucose, P 92 70 - 100 mg/dL 05/28/2022 11:36 AM CDT [facility] Last Intake 15 hr 05/28/2022 11:22 AM CDT [facility] Blood (Blood, Venous) 05/28/2022 10:54 AM CDT 05/28/2022 11:22 AM CDT us Arias Valdivia M.D. LAB BLOOD NON ADD-ON Final Result [facility] [address] [place] [address], [facility] NPRG [address] [address] * BI Breast Screening Bilateral with Tomosynthesis (01/16/2021 10:28 AM [employer] TUB W[employer]ER) Anatomical Region Laterality Modality Breast, Breast Imaging RST L OS, Breast Imaging ARZ LOS, Breast Imaging FLA LOS Bilateral Mammography 01/16/2021 11:2 5 AM [employer] TUB WASHER Impressions 01/16/2021 1:41 PM LARD TUB WASHER Negative. RECOMMENDATION: ??Annual Screening Mammogram ASSESSMENT: ??BI-RADS: 2: Benign. 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 See document viewer. Advance Directives 08/26/2006 12:00 AM Leg acy document. See document viewer. Advance Directives 08/22/2006 12:00 AM Leg acy document. See document viewer. * Full Code (Latest Code Status on File) Date Activated Date Inactivated Comments 10/02/2019 4:02 PM 10/03/2019 5:08 PM Question Answer Comments Full Code: Discussed Care Teams Chest Painting And Sealing Supervisor Relationship Specialty Start Date End Date Elsewhere, Pcp PCP - General Internal Medicine 03/21/22
--- OUTSIDE RECORDS SUMMARY | 2023-11-28 11:55 | XMS_ITS | Encounter Summary ---
Author Organization [facility] Address [address] [place] [address] Care Team Providers Care Documentation Engineer Name Role Phone Elsewhere, Pcp Primary Care Provider Unavailabl e Reason for Referral * Outpatient (Routine) - Closed Specialty Diagnoses / Procedures Referred By Hima t Referred To Contact Pulmonary Medicine Meek Solano M.D. [address] [place] [address] Phone: tel: fax: [facility] Referral ID Status Reason Start Date Expiration Date Visits Re quested Visits Authorized [id number] Closed 08/23/2023 02/21/2025 1 1 Reason for Visit * Outpatient (Routine) - Closed Specialty Diagnoses / Procedures Referred By Hima beck Referred To Contact Pulmonary Medicine Meek Solano M.D. [address] [place] [address] Phone: tel: fax: [facility] Referral ID Status Reason Start Date Expiration Date Visits Re quested Visits Authorized [id number] Closed 08/23/2023 02/21/2025 1 1 Encounter Details Date Type Department Care Team (Latest Contact Info) Description 11/08/2023 12:57 PM CDT - 11/08/2023 11:59 PM CDT Hospital Encounter Division of Pulmonary Medicine in [place], [place] [address] [place] [phone] Meek Solano M.D. [address] [place] [phone] Discharge Disposition: Home or Self Care Social History Tobacco Use Types Packs/Day Years Used Date Smoking Tobacco: Former Cigarettes Q uit: 10/15/1972 Passive Smoke Exposure: Past Smokeless Tobacco: Never Alcohol Use Standard Drinks/Week Comments Yes 1 (1 standard drink = 0.6 oz pur e alcohol) [facility] Utilities Answer Date Recorded In the past 12 months has e [employer], gas, oil, or water [employer] threatened to shut off services in your [...] file 08/06/2019 How often do you attend scientologist or catholic serv ices? Never 08/06/2019 Active Member of [...] Living Expenses Not hard at all 11/08/2018 [facility] [place] [facility] Occupat ional Health - Occupational Stress [...] your living situation today? I have a [facility] place to live 07/05/2023 Education Answer Date Recorded What is the highest level of school you have completed or the highest degree you have received? 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 Gender Identity Female 06/20/2017 1:09 PM CDT Sexual Orientation Straight 06/20/2017 1: 09 PM CDT documented as of this encounter Last Filed Vital Signs Vital Sign Reading Time Taken Comments Blood Pressure 128/81 11/08/2023 1:25 PM CDT Pulse 85 11/08/2023 1:25 PM CDT Temperature 36.7 ??C (98.1 ??F) 11/08/2023 1:25 PM CD T Respiratory Rate - - Oxygen Saturation 98% 11/08/2023 1:25 PM CDT Inhaled Oxygen Concentration - - Weight 63.6 kg (140 lb 3.4 oz) 11/08/2023 1:25 P M CDT Height 149.2 cm (4' 10.74) 11/08/2023 1:25 PM C DT Body Mass Index 28.57 11/08/2023 1:25 PM CDT documented in this encounter Medications at Time [...] 3 4 documented as of this encounter Progress Notes * Meek Solano M.D. - 11/08/2023 1:30 PM CDT SUBJECTIVE CHIEF COMPLAINT/REASON FOR VISIT Chronic cough and pulmonary infiltrates. HISTORY OF PRESENT ILLNESS I had the pleasure again today to meet with Mrs. Nadine Leal as well as her . I last met with her on the August. At that time, her principal complaint was that of a chronic, somewhat productive cough. The thought at that time was that it may be related to postnasal drip. Initially, she was prescribed a triple nasal spray; however, her insurance would not cover that, and so was converted over to Flonase. She did use that for approximately a month and noted decreased sputum although little change in the cough. She has discontinued that since, and really has not noted any increase in sputum although her cough has persisted. She is not noting any voice change. She has not experienced hemoptysis. The plan was for her to return today for repeat chest CT scan given the findings of some pulmonary infiltrates on her prior CT scan. She has not noted fevers or chills. She does have a history of reflux, although that has not been particularly problematic of late. She recently went to [place] and was short of breath at altitude, and did use some supplemental oxygen, although it is not clear whether she was actually hypoxic. Since returning from [place], she does experiencewhat she describes as paroxysmal dyspnea. It is nonexertional. It tends to come on unexpectedly andlast for just a few seconds to perhaps a minute and then resolves spontaneously. It is not associated with chest pain or pressure. There are no associated palpitations. I note that she has had an extensive evaluation for similar complaints back in 2016, and even back to 2010, and they have been unrevealing. She has not noted any wheezing. She denies lymphadenopathy. She has no dysphagia or odynophagia or aspiration-like symptomatology. Her weight is stable. She denies orthopnea or paroxysmal nocturnal dyspnea. OBJECTIVE PHYSICAL EXAMINATION Vital Signs: Height 149.2 cm. Weight is 63.6 kg. Temperature 36.7 degrees Celsius. Pulse of 85. Blood pressure 128/81. Oxygen saturation 98% on room air at rest. General Appearance: The patient is a pleasant, well-nourished, well-developed, alert, interactive, and appropriate female in no distress. HEENT: Head is normocephalic, atraumatic. Tympanic membranes are poorly visualized due to cerumen. Nasal mucosa is clear without any stranding, and the previously identified cobblestone change now seems to have resolved. Neck: Supple to full range of motion. There is no cervical, supraclavicular, or axillary lymphadenopathy appreciated. Thyroid: Non-nodular, non-enlarged, and nontender. Lungs: Clear to auscultation bilaterally without crackles, wheeze, or rub, and there is no wheeze even with forced expiration. Cardiovascular: Normal S1, S2 with a regular rate and rhythm, and I do not appreciate any murmurs. Abdomen: Slightly protuberant although soft without rebound or guarding. Extremities : There is no clubbing, cyanosis, or edema. Neurologic Exam: Grossly nonfocal with intact strength, gait, and sensory perception, and the patient is alert and oriented x4. DIAGNOSTICS Chest CT scan performed today really demonstrates very little, if any change when compared to CT scan from the August. There are a number of bilateral pulmonary nodules, the largest of which is within the left lower lobe and stable since 2010. There is a nodule that has increased slightly over time since 2010 in the right upper lobe. Again identified are areas of mucus plugging and some nodularity particularly within the right middle lobe and lingula that really is unchanged when compared to August. I do not appreciate adenopathy. ASSESSMENT / PLAN #1 Pulmonary infiltrates The primary goal of today's visit was to follow up on the pulmonary infiltrates, predominantly in the right middle lobe although also within the lingula. They really are unchanged. This is in the setting of a chronic cough that is at this point nonproductive. The radiologist mentions the possibility of indolent infection such as non-tuberculous Mycobacterium, and that certainly seems to be a reasonable explanation. At this point, I do favor proceeding with bronchoscopy with bronchoalveolar lavage (non-immunocompromised protocol) likely from the right middle lobe. The patient has agreed to proceed with bronchoscopy tomorrow, and we will obtain an electrocardiogram today. She does have recentlaboratory studies from August which appear satisfactory and do not need to be repeated, and she is not on therapeutic anticoagulation. I have instructed her to remain n.p.o. after midnight tonight, and we will plan to proceed with bronchoscopy here on [address] tomorrow. NOTE TO BRONCHOSCOPIST: Please perform fiberoptic bronchoscopy with bronchoalveolar lavage (non- immunocompromised host protocol) from the right middle lobe or other location as preferred by the bronchoscopist. #2 Chronic cough This certainly may be related to the findings on chest CT scan, and this will be further investigated with a bronchoscopy tomorrow. Along those same lines, I do favor obtaining pulmonary function tests with methacholine challenge, although I note that the patient's pulmonary function tests in the past had been unremarkable. That, however, was back in 2015, and they have not been repeated since that time. I will plan to have the patient return to discuss results of pulmonary function tests afterthey have been completed. #3 Paroxysmal dyspnea This is nonexertional and not associated with palpitations, syncope, or presyncope. One does wonder, however, about the possibility of a paroxysmal dysrhythmia. I note that she has had multiple Holter monitors in the past, and they have remained normal. I do, however, favor repeating a Holter monitor as well as echocardiogram, the results of which will be discussed with the patient at her return appointment. She does also endorse a multitude of anxieties, and one wonders whether this may all just be related to an undiagnosed anxiety disorder. That, of course, would only be operative if an organic explanation has been excluded, as we are attempting to do with Holter monitor, pulmonary function tests, bronchoscopy, echocardiogram. #4 Hypothyroidism with hypoparathyroidism #5 Pulmonary nodules The patient has a multitude of pulmonary nodules. The dominant nodule is within the left lower lobeand really is unchanged since 2010 and should be benign. The nodule within the right upper lobe hasgradually increased over the course of the last 13-14 years and also likely represents a benign etiology. I have, however, discussed with the patient the option to proceed with bronchoscopic biopsy of the nodule versus continued serial followup. We have not at this point fully excluded a carcinoid as an explanation. After some consideration, the patient has opted not to proceed with bronchoscopicbiopsy and just continue with annual followup as previously planned. 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 CT CT Job ID: [id number] documented in this encounter Plan of Treatment Upcoming Encounters Date Type Department Care Team (Latest Contact Info) Description 12/07/2023 12:15 PM CDT Appointment Department of Cardiovascular Diseases in [place], [place] [address] [place] [phone] Meek Solano M.D. [address] [place] [phone] Discharge Disposition: Home or Self Care 12/07/2023 2:30 PM CDT Diagnostic Division of Pulmonary Medicine in [address] [phone] Meek Solano M.D. [address] [place] [phone] 12/19/2023 10:40 AM DYEING MACHINE FEEDER Appointment Department of Cardiovascular Diseases in [address] [phone] Meek Solano M.D. [address] [place] [phone] 12/27/2023 4:30 PM DYEING MACHINE FEEDER Appointment Division of Pulmonary Medicine in [place], [place] [address] [place] [phone] Meek Solano M.D. [address] [place] [phone] Discharge Disposition: Home or Self Care Scheduled Referrals Name Type Priority Associated Diagnoses Order Schedule Pulmonary Medicine office visit (clinic) Outpatient Referral Routine Once for 1 Occurrences starting 11/08/2023 until 11/08/2023 documented as of this encounter Visit Diagnoses Not on filedocumented in this encounter Care Teams Documentation Engineer Relationship Specialty Start Date End Date Elsewhere, Pcp PCP - General Internal Medicine 03/21/22 documented as of this encounter
--- OUTSIDE RECORDS SUMMARY | 2023-11-28 11:55 | XMS_ITS | Encounter Summary ---
Author Organization [facility] Address [address] [place] [address] Care Team Providers Care Reel Worker Name Role Phone Elsewhere, Pcp Primary Care Provider Unavailabl e Encounter Details Date Type Department Care Team (Late st Contact Info) Description 08/24/2023 Orders Only Division of Pulmonary Medicine in [place], [place] [address] [place] [address] Meek Solano M.D. [address] [place] [address] Social History Tobacco Use Types Packs/Day Years Used Date Smoking Tobacco: Former Cigarettes Q uit: 10/15/1972 Passive Smoke Exposure: Past Smokeless Tobacco: Never Alcohol Use Standard Drinks/Week Comments Yes 1 (1 standard drink = 0.6 oz pur e alcohol) [facility] Utilities Answer Date Recorded In the past 12 months has [facility] [employer], gas, oil, or water [employer] threatened to shut off services in your [...] file 08/06/2019 How often do you attend buddhism or sikhism serv ices? Never 08/06/2019 Active Member of [...] Living Expenses Not hard at all 11/08/2018 [facility] - Occupational Stress Questionnaire Answer Date [...] living situation today? I have a [facility] place to live 07/05/2023 Education Answer Date Recorded What is the highest level of school you have completed or the highest degree you have received? 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 [address] [place] [phone] Discharge Disposition: Home or Self Care 12/07/2023 2:30 PM CDT Diagnostic Division of Pulmonary Medicine in [place], [place] [address] [place] [address] Meek Solano M.D. [address] [place] [phone] 12/19/2023 10:40 AM COMPLIANCE EXAMINER Appointment Department of Cardiovascular Diseases in [place], [place] [address] [place] [address] Meek Solano M.D. [address] [place] [phone] 12/27/2023 4:30 PM COMPLIANCE EXAMINER Appointment Division of Pulmonary Medicine in [place], [place] [address] [place] [phone] Meek Solano M.D. [address] [place] [address] Discharge Disposition: Home or Self Care documented as of this encounter Visit Diagnoses Not on filedocumented in this encounter Care Teams Reel Worker Relationship Specialty Start Date End Date Elsewhere, Pcp PCP - General Internal Medicine 03/21/22 documented as of this encounter
--- OUTSIDE RECORDS SUMMARY | 2023-11-28 11:55 | XMS_ITS | Encounter Summary ---
Author Organization [facility] Address [address] [place] [phone] Care Team Providers Care Public Transit Specialist Name Role Phone Elsewhere, Pcp Primary Care Provider Unavailabl e Reason for Visit * Reason Onset Date Comments Covid 08/26/2023 Encounter Details Date Type Department Care Team (Late st Contact Info) Description 08/26/2023 Clinical Communication Division of Pulmonary Medicine in [place], [place] [address] [place] [phone] Meek Solano M.D. [address] [place] [address] Covid Social History Tobacco Use Types Packs/Day Years Used Date Smoking Tobacco: Former Cigarettes Q uit: 10/15/1972 Passive Smoke Exposure: Past Smokeless Tobacco: Never Alcohol Use Standard Drinks/Week Comments Yes 1 (1 standard drink = 0.6 oz pur e alcohol) [facility] Utilities Answer Date Recorded In the past [address] [facility] [email or web address], gas, oil, or water [employer] threatened to shut off services in your [...] file 08/06/2019 How often do you attend muslim or nondenominational serv ices? Never 08/06/2019 Active Member of [...] Living Expenses Not hard at all 11/08/2018 [facility] of Occupat ional Health - Occupational [...] your living situation today? I have a [facility] place to live 07/05/2023 Education Answer Date Recorded What is the highest level of school you have completed or the highest degree you have received? 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 - 08/26/2023 5:58 PM CDT TELEPHONE CONVERSATION. CHIEF COMPLAINT/REASON FOR VISIT Cough and fevers. HISTORY OF PRESENT ILLNESS I returned a telephone call to Mrs. Leal. She had called earlier today to indicate that she was experiencing increased fatigue, as well as low-grade fevers. When I saw her just 2 days ago, she did have a small infiltrate on her chest CT scan. Overall, she indicates she is starting to feel some improvement, and she has tested for COVID and that has been negative. That said, in the setting of the infiltrate as well as fevers and fatigue, I do feel it would be reasonable to give her a course of antibiotics, and she is in agreement. I have entered a prescription for azithromycin (Z-Mario) to be picked up at her local pharmacy tomorrow. She appreciated the call. Meek Solano M.D. CT CT Job ID: [id number] * Telephone Encounter - Jose M Carter R.N. - 08/26/2023 4:09 PM CDT Information Discussed Respiratory symptoms New severe shortness of breath at rest or with activity: No New/worsening cough: No Lethargy or fatigue: Yes - both Lightheadedness with exertion/presyncope: No Oxygenation Supplemental oxygen used: No Oxygen saturation: 100% Change in oxygen use, oxygen saturation, or recovery time: No Infectious symptoms Fever (measured > 101OF): No, Congestion (sinus and chest): No New or productive phlegm: Yes - but not new for her Malaise, low energy, fatigue: Yes - fatigued Reported history of infectious exposure within 1 week of current symptoms: No Other Atypical pleuritic or resting chest pain/palpitation: No Orthopnea: No Unilateral increased lower extremity edema: No Recurrent hemoptysis (< 1 teaspoon each time but more than twice in a 24 hour period): No Recent medication change or modification with associated gastrointestinal or skin symptoms: No She took a COVID test and is negative for Covid stating that she is negative for COVID. PLAN Disposition/Recommendation: notified provider and awaiting recommendations Information/Education: patient/caller able to teach back Caller agreeable to plan of care: yes The following references were used: nursing clinical judgement * Telephone Encounter - Yesika Nguyễn - 08/26/2023 2:57 PM CDT FYI-patient called back, she took a COVID test today and it came back negative. * Telephone Encounter - Sarah Saleem - 08/26/2023 9:12 AM CDT Pulmonary Note: Call Message Caller: Patient Preferred contact: Authorized: Yes Diagnosis: Chief complaint at this point is cough Last Appointment: 08/23/23 Message: The patient called and said that she thinks she has COVID. She had a headache last Tuesday week, and now she has a sore throat, headache, fever, and does not feel well. She is going to try toget a COVID test or do one over the counter. The patient will call back when she tests to let us know the results also. She is hoping to take a test today. Action Requested: This is more of a FYI. Additional Notes: Sarah HENSON [phone] documented in this encounter Plan of Treatment Upcoming Encounters Date Type Department Care Team (Latest Contact Info) Description 12/07/2023 12:15 PM CDT Appointment Department of Cardiovascular Diseases in [address] [phone] Meek Solano M.D. [address] [place] [phone] Discharge Disposition: Home or Self Care 12/07/2023 2:30 PM CDT Diagnostic Division of Pulmonary Medicine in [address] [phone] Meek Solano M.D. [address] [place] [phone] 12/19/2023 10:40 AM ROTOGRAVURE PRESS OPERATOR Appointment Department of Cardiovascular Diseases in [address] [phone] Meek Solano M.D. [address] [place] [phone] 12/27/2023 4:30 PM ROTOGRAVURE PRESS OPERATOR Appointment Division of Pulmonary Medicine in [address] [phone] Meek Solano M.D. [address] [place] [phone] Discharge Disposition: Home or Self Care documented as of this encounter Visit Diagnoses Not on filedocumented in this encounter Care Teams Public Transit Specialist Relationship Specialty Start Date End Date Elsewhere, Pcp PCP - General Internal Medicine 03/21/22 documented as of this encounter
--- OUTSIDE RECORDS SUMMARY | 2023-11-28 11:55 | XMS_ITS | Encounter Summary ---
Author Organization [facility] Address [address] [place] [phone] Care Team Providers Care Maintenance Aide Name Role Phone Elsewhere, Pcp Primary Care Provider Unavailabl e Reason for Visit * Reason Comments Med Refill Encounter Details Date Type Department Care Team ([facility] st Contact Info) Description 08/26/2023 Refill Division of Pulmonary Medicine in [place], [place] [address] [place] [phone] Meek Solano M.D. [address] [place] [address] Med Refill Social History Tobacco Use Types Packs/Day Years Used Date Smoking Tobacco: Former Cigarettes Q uit: 10/15/1972 Passive Smoke Exposure: Past Smokeless Tobacco: Never Alcohol Use Standard Drinks/Week Comments Yes 1 (1 standard drink = 0.6 oz pur e alcohol) [facility] Utilities Answer Date Recorded In the past 12 months has [facility] [employer], gas, oil, or water [employer] threatened to shut off services in your [...] How often do you attend buddhism or denominational serv ices? Never 08/06/2019 Active Member of [...] Living Expenses Not hard at all 11/08/2018 [facility] of Occupat ional [facility] - Occupational Stress Questionnaire Answer Date Recorded [...] your living situation today? I have a [facility] place to live 07/05/2023 Education Answer Date Recorded What is the highest level of school you have completed or the highest degree you have received? 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 [address] [place] [phone] Discharge Disposition: Home or Self Care 12/07/2023 2:30 PM CDT Diagnostic Division of Pulmonary Medicine in [place], [place] [address] [place] [phone] Meek Solano M.D. [address] [place] [phone] 12/19/2023 10:40 AM SOLAR SYSTEMS DESIGNER Appointment Department of Cardiovascular Diseases in [place], [place] [address] [place] [phone] Meek Solano M.D. [address] [place] [phone] 12/27/2023 4:30 PM SOLAR SYSTEMS DESIGNER Appointment Division of Pulmonary Medicine in [place], [place] [address] [place] [address] Meek Solano M.D. 200 [place] [phone] Discharge Disposition: Home or Self Care documented as of this encounter Visit Diagnoses Not on filedocumented in this encounter Care Teams Maintenance Aide Relationship Specialty Start Date End Date Elsewhere, Pcp PCP - General Internal Medicine 03/21/22 documented as of this encounter
--- OUTSIDE RECORDS SUMMARY | 2023-11-28 11:56 | XMS_ITS | Encounter Summary ---
Author Organization [facility] Address [address] [place] [address] Care Team Providers Care Lymphedema Therapist Name Role Phone Elsewhere, Pcp Primary Care Provider Unavailabl e Reason for Visit * Reason Onset Date Comments Triple Nasal [place] Rx 08/24/2023 Encounter Details Date Type Department Care Team (Latest Contact Info) Description 08/24/2023 Clinical Communication Division of Pulmonary Medicine in [place], [place] [address] [place] [address] Meek Solano M.D. [address] [place] [address] Triple Nasal [place] Rx Social History Tobacco Use Types Packs/Day Years Used Date Smoking Tobacco: Former Cigarettes Q uit: 10/15/1972 Passive Smoke Exposure: Past Smokeless Tobacco: Never Alcohol Use Standard Drinks/Week Comments Yes 1 (1 standard drink = 0.6 oz pur e alcohol) [facility] Utilities Answer Date Recorded In the past 12 months has [facility] [employer] gas, oil, or water [employer] threatened to shut off services in your [...] file 08/06/2019 How often do you attend episcopalian or quaker serv ices? Never 08/06/2019 Active Member of [...] Living Expenses Not hard at all 11/08/2018 [facility] - Occupational Stress Questionnaire Answer [...] your living situation today? I have a [facility] place to live 07/05/2023 Education Answer Date Recorded What is the highest level of school you have completed or the highest degree you have received? 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 Solano, Last visit: 08/23/2023 Message: Patient called and stated her insurance will not cover triple nasal spray Rx and she cannot afford $177.96. Is there something else she can try? Thank you, [id number] documented in this encounter Plan of Treatment Upcoming Encounters Date Type Department Care Team (Latest Contact Info) Description 12/07/2023 12:15 PM CDT Appointment Department of Cardiovascular Diseases in [place], [place] [address] [place] [phone] Meek Solano M.D. 200 [place] [phone] Discharge Disposition: Home or Self Care 12/07/2023 2:30 PM CDT Diagnostic Division of Pulmonary Medicine in [place], [place] [address] [place] [phone] Meek Solano M.D. [address] [place] [address] 12/19/2023 10:40 AM MACHINE GREASER Appointment Department of Cardiovascular Diseases in [place], [place] [address] [place] [address] Meek Solano M.D. [address] [place] [address] 12/27/2023 4:30 PM MACHINE GREASER Appointment Division of Pulmonary Medicine in [place], [place] [address] [place] [address] Meek Solano M.D. [address] [place] [address] Discharge Disposition: Home or Self Care documented as of this encounter Visit Diagnoses Not on filedocumented in this encounter Care Teams Lymphedema Therapist Relationship Specialty Start Date End Date Elsewhere, Pcp PCP - General Internal Medicine 03/21/22 documented as of this encounter
--- OUTSIDE RECORDS SUMMARY | 2023-11-28 11:56 | XMS_ITS | Clinical Summary ---
Author Organization [facility] Address [place], [place] [address] Care Team Providers Care Strategic Advisor Name Role Phone Dean Lomeli MD Primary Care Provider [phone] Allergies Active Allergy Reactions Criticality Noted Date Comments Mallory (Zingiber Officinalis) Wheezing 2007 Azithromycin Wheezing 05/08/2012 Medications Medication Sig Dispensed Refills Start Date End Date Status PHOSLO 667 MG CAP 2 capsules twice daily Active CALCIUM CARBONATE ORAL 1250 mg tabs- 2 tabs three times daily Active HYDROCHLOROTHIAZI DE 25 MG TAB once daily Active acetaminophen (TYLENOL EXTRA STRENGTH) 500 mg tablet Take 2 tablets by mouth every 24 hours. Max acetaminophen dose: 4000mg in 24 hrs. 0 08/03/2011 Active aspirin enteric coated 81 mg tablet Take 1 tablet by mouth once daily with a meal. 0 08/03/2011 Active docusate (STOOL SOFTENER) 100 mg capsule Take 2 capsules by mouth once daily. 0 08/03/2011 Active albuterol HFA (PRO-AIR,VENTOLIN ,PROVENTIL) 90 mcg/actuation inhaler Inhale 2 Puffs by mouth 4 times daily if needed. 0 08/03/2011 Active cyanocobalamin (VITAMIN B-12) 1,000 mcg tablet Take 1 tablet by mouth one time. Takes it once weekly 0 05/08/2012 Active cyclobenzaprine (FLEXERIL) 10 mg tablet Take 1 tablet by mouth 2 times daily if needed for Muscle Spasm. 0 05/08/2012 Active levothyroxine (SYNTHROID) 150 mcg tablet Take 1 tablet by mouth before breakfast. 90 tablet 2 05/08/2012 Active triamterene-hydro chlorothiazide, 37.5-25 mg, (DYAZIDE) 37.5-25 mg capsule Take 1 capsule by mouth every morning. 90 capsule 2 05/08/2012 Active HYDROcodone-aceta minophen, 5-325 mg, (NORCO) per tablet Take 1 tablet by mouth every 4 hours if needed for Pain. Max acetaminophen dose: 4000mg in 24 hrs. 0 09/11/2012 Active metaxalone (SKELAXIN) 400 mg Tab Take 2 tablets by mouth one time. 2 tablet 0 09/11/2012 Active levothyroxine (SYNTHROID) 150 mcg tablet Take 1 tablet by mouth before breakfast. 90 tablet 3 09/12/2012 Active triamterene-hydro chlorothiazide, 37.5-25 mg, (DYAZIDE) 37.5-25 mg capsule Take 1 capsule by mouth every morning. 90 capsule 3 11/08/2012 Active calcitriol 0.5 mcg capsule Take 2 tabs in am, 1 tab in afternoon and 2 tabs in evening 450 capsule 0 05/09/2013 Active omeprazole (PRILOSEC) 20 mg capsule Take 1 capsule by mouth 2 times daily before meals. 180 capsule 0 05/09/2013 Active promethazine (PHENERGAN) 12.5 mg tablet Take 1 tablet by mouth every 6 hours if needed for Nausea/Vomiting. 60 tablet 0 05/09/2013 Active traMADol (ULTRAM) 50 mg tablet Take 1 tablet by mouth 2 times daily. 180 tablet 0 05/09/2013 Active omeprazole (PRILOSEC) 20 mg capsule Take 1 capsule by mouth 2 times daily before meals. 180 capsule 0 06/20/2013 Active Active Problems Problem Noted Date Diagnosed Date GERD (gastroesophageal reflux disease) 2 RSD (reflex sympathetic dystrophy) 08/03/2011 DJD (degenerative joint disease) 08/03/2011 Breast cancer 08/03/2011 Overview (08/03/2011): Left lumpectomy and radiation, [facility], Oct 2011 Stroke 08/03/2011 Overview (08/03/2011): With temporary aphasia, 4-6-12. Protein S deficiency. HRT stopped. 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 Hypercholesterolemia 08/03/2011 Fibromyalgia 08/03/2011 Somnambulism 08/03/2011 osteophytes of thoracic spine 08/03/2011 hypoparathyroidism Overview (08/03/2011): Iatrogenic post thyroidectomy Hypoglycemia, unspecified Overview (08/03/2011): Likely reactive post gastric bypass Social History Tobacco Use Types Packs/Day Years Used Date Smoking Tobacco: Never Assessed Sex and Gender Information Value Date Recorded Sex Assigned at Not on file Gender Identity Not on file Sexual Orientation Not on file Obstetrics History Last Filed Vital Signs Vital Sign Reading Time Taken Comments Blood Pressure 120/80 09/11/2012 10:30 AM CDT Pulse 66 09/11/2012 10:30 AM CDT Temperature 36.8 ??C (98.2 ??F) 08/25/2007 3:00 PM CD T Respiratory Rate 16 08/25/2007 3:00 PM CDT Oxygen Saturation - - Inhaled Oxygen Concentration - - Weight 68 kg (150 lb) 09/11/2012 10:30 AM CDT Height 152.4 cm (5') 08/25/2007 7:00 AM CDT Body Mass Index 29.29 08/25/2007 7:00 AM CDT Plan of Treatment Health Maintenance Due Date Last Done Comments Tdap 09/30/1961 Depression screening for age 12+ 1964 BMI (ht and wt on same day) for age 18+ 1970 Hepatitis C screening for age 18-79 1970 Tetanus booster 1972 Colonoscopy through age 75 1997 Lipids for age 45-75 1997 Mammogram for age 45-75 1997 Zoster (shingles) series for age 50+ (1 of 2) 09/30/19 03 DEXA/DXA scan for age 65+ 2017 Pneumococcal series for age 65+ (1 of 1 - PCV) 018 COVID-19 vaccine series ( - 2023-25 season) 4 Influenza for age 65+ 10/09/2023 Care Teams Strategic Advisor Relationship Specialty Start Date End Date Dean Lomeli MD PCP - General Family Practice 05/03/12
--- OUTSIDE RECORDS SUMMARY | 2023-11-28 11:56 | XMS_ITS | Encounter Summary ---
Author Organization [facility] Address [address] [place] [address] Care Team Providers Care Simulation Educator Name Role Phone Elsewhere, Pcp Primary Care Provider Unavailabl e Reason for Referral * Outpatient (Routine) - Closed Specialty Diagnoses / Procedures Referred By Contac t Referred To Contact Pulmonary Medicine Meek Solano M.D. 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 [address] [place] [address] Phone: tel: fax: [facility] Referral ID Status Reason Start Date Expiration Date Visits Re quested Visits Authorized [id number] Closed 08/23/2023 08/22/2024 1 1 Encounter Details Date Type Department Care Team (Late st Contact Info) Description 08/23/2023 Orders Only Division of Pulmonary Medicine in [place], [place] [address] [place] [phone] Meek Solano M.D. 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 Never 08/06/2019 Active Member of [...] Living Expenses Not hard at all 11/08/2018 [place] [facility]at [facility] - Occupational Stress [...] your living situation today? I have a [facility] place to live 07/05/2023 Education Answer Date Recorded What is the highest level of school you have completed or the highest degree you have received? 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 [address] [place] [phone] Discharge Disposition: Home or Self Care 12/07/2023 2:30 PM CDT Diagnostic Division of Pulmonary Medicine in [place], [place] [address] [place] [phone] Meek Solano M.D. [address] [place] [phone] 12/19/2023 10:40 AM FINANCIAL ADMINISTRATION OFFICER Appointment Department of Cardiovascular Diseases in [place], [place] [address] [place] [phone] Meek Solano M.D. [address] [place] [phone] 12/27/2023 4:30 PM FINANCIAL ADMINISTRATION OFFICER Appointment Division of Pulmonary Medicine in [place], [place] [address] [place] [phone] Meek Solano M.D. [address] [place] [phone] Discharge Disposition: Home or Self Care Scheduled Referrals Name Type Priority Associated Diagnoses Orde r Schedule Pulmonary Medicine office visit (clinic) Outpatient Referral Routine Expected: 11/23/2023, Expires: 11/22/2024 documented as of this encounter Results * CT Chest without [...] 3, image 346) has been present since 2011. Therefore, this should be benign. 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
--- OUTSIDE RECORDS SUMMARY | 2023-11-28 11:56 | XMS_ITS | Encounter Summary ---
Author Organization [facility] Address [address] [place] [address] Care Team Providers Care Fish Bait Picker Name Role Phone Elsewhere, Pcp Primary Care Provider Unavailabl e Reason for Visit * Outpatient (Routine) - Closed Specialty Diagnoses / Procedures Referred By Contcristhian t Referred To Contact Pulmonary Medicine Meek Solano M.D. [address] [place] [phone] Phone: tel: fax: [facility] Referral ID Status Reason Start Date Expiration Date Visits Re quested Visits Authorized [id number] Closed 07/13/2023 01/11/2025 1 1 Encounter Details Date Type Department Care Team (Late Contact Info) Description 08/23/2023 1:30 PM CDT Office Visit Division of Pulmonary Medicine in [place], [place] [address] [place] [phone] Meek Solano M.D. [address] [place] [phone] Chronic Cough (Primary Dx); Nodule Pulmonary Social History Tobacco Use Types Packs/Day Years [...] file 08/06/2019 How often do you attend sikh or anabaptist serv ices? Never 08/06/2019 Active Member of [...] Living Expenses Not hard at all 11/08/2018 [facility] - Occupational [...] your living situation today? I have a [facility] place to live 07/05/2023 Education Answer Date Recorded What is the highest level of school you have completed or the highest degree you have received? 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 - 08/23/2023 1:30 PM CDT SUBJECTIVE CHIEF COMPLAINT/REASON FOR VISIT Chief complaint at this point is cough. HISTORY OF PRESENT ILLNESS I had the pleasure again today to meet with Mrs. Leal as well as her . I last met with on the June, although I have been following her since 2010 for pulmonary nodules that remain stable. Her complaint at this time, however, is that of a cough that has been persistentsince approximately December. She was actually evaluated by her primary physician on the Jan with complaints of chest congestion and dry cough. At that time, she did not have chills, muscle aches, night sweats, or nasal congestion, although did have a sore throat. Since that time, the cough has been persistent, albeit intermittent in that some days it is worse than others. However, she does experience some cough almost every day. The cough is generally nonproductive, although occasionally productive of thick clear sputum. The patient does have a longstanding history of gastroesophageal reflux disease and actually has been offered evaluation by thoracic surgery to address a hiatal hernia; although, at this point, she is not interested in that evaluation. She is taking omeprazole and indicates that the reflux actually is quite well controlled by her report. She has undergone an EGD which did not demonstrate any evidence of Bacon's esophagus or precancerous lesions. She specifically and notes that the cough does not seem to be associated with any reflux-like symptomatology. Likewise, she has not experienced any wheeze or dyspnea. At 1 point, she had lost some weight, although has regained that and now her weight has remained stable. She again denies fevers, chills, or rigors. She has not experienced hemoptysis. She does not note facial pain or fullness. She does however indicate a sensation of tickle in the back of her throat as well as intermittent hoarseness.It does not seem that the cough has a seasonal or exposure association. She denies dysphagia, odynophagia, or aspiration-like symptomatology. Her last pulmonary function tests were in 2012 and were normal. OBJECTIVE PHYSICAL EXAMINATION Vital Signs: Oxygen saturation 100% on room air at rest. Temperature 36 degrees. General Appearance: The patient is a pleasant, well-nourished, well-developed, alert, interactive, and appropriate female in no distress. Head and Neck: Normocephalic, atraumatic. Tympanic membranes are intact bilaterally. Nasal mucosa demonstrates some clear nasal drainage and there is some mild cobblestone change of the posterior oropharynx. Neck: Supple to full range of motion. There is no cervical, supraclavicular, or axillary lymphadenopathy appreciated. There is no tenderness to palpation of the bilateral paranasal sinuses. Lungs: Clear to auscultation bilaterally without crackles, wheeze, or rub. Thyroid: Not palpable. Cardiovascular: Normal S1 and 2 with a regular rate and rhythm. No murmurs, gallops, or rubs. Abdomen: Protuberant, although soft without rebound or guarding. There is no clubbing, cyanosis, oredema. Neurologic Exam: Grossly nonfocal with intact strength, gait, and sensory perception, and the patient is alert and oriented x4. DIAGNOSTICS The patient underwent a chest CT scan today, which I reviewed in comparison to chest CT scan from the November. This demonstrates just a mm increase in the size of the right upper lobe partially calcified nodule as well as a tiny focal infiltrate within the inferior margin of the right middle lobe. There is also slight increase in a 3 mm right middle lobe nodule. All of the other pulmonary nodules are unchanged. ASSESSMENT / PLAN #1 Chronic cough The patient does have a prior history of gastroesophageal reflux disease; however, it does not seemthat the cough at this time at least is temporally associated with any increase in reflux. The patient indicated indicates that her reflux at this point is really quite well controlled. The principalfinding on exam is that of a clear nasal drainage with some of cobblestone change in the posterior oropharynx and that, along with the symptoms of tickle sensation in the back of the throat and hoarseness, would certainly suggest a postnasal drip or upper respiratory type phenomenon. I do not see anything on the CT scan that would strongly suggest a lower respiratory etiology. We do not have recent pulmonary function tests; however, the patient denies any wheeze, and she does not have wheezing with forced expiration. Her prior pulmonary function tests were completely normal. At this point, I favor an empiric trial of triple nasal spray. We will do 2 sprays per nostril twice daily. I have asked her to contact me in a month if that has not resulted in any improvement in the cough. If not, then I would have the patient further evaluated in the Chronic Cough [facility]. I would also arrange forrepeat pulmonary function test, likely with a methacholine challenge to occur at that time. #2 Pulmonary infiltrate There is a focal area of pulmonary infiltrate within the inferior right middle lobe. That was not present on a prior CT scan. I do not believe that is likely to be of much clinical significance; however, I do favor a repeat CT scan in 3 months. That has been prearranged, and I will plan to see the patient back at that time. #3 Pulmonary nodules There is a very slight increase in nodules within the right lung. Previously these nodules had all remained stable over several years of serial followup. I suspect a benign etiology, however, continued serial followup will certainly be indicated. Of note, the patient does have a strong family history of malignancy and even has a history of breast carcinoma in situ in her own past history. Consequently, I would favor transitioning to yearly followup CT scan presuming the CT scan in 3 months has not demonstrated any growth. If there is growth even at that short interval, then additional evaluation to include a PET scan and bronchoscopic biopsy may be indicated. #4 History of recurrent pneumonia This actually has not been problematic since the patient's reflux has come under better control. I do suspect that this represents retrograde aspiration. I have again offered the patient further evaluation in Thoracic Surgery to discuss surgical options to address her hiatal hernia, however, she has declined at this time. #5 Hypothyroidism and hypoparathyroidism #6 Prior history of bariatric surgery with iron deficiency and now normal vitamin B12 levels #7 History of ductal carcinoma in situ #8 History of hiatal hernia ADDENDUM: I spoke today with Mrs. Leal. Evidently the triple nasal spray is prohibitively expensive and not covered by her insurance. As such I have entered a new prescription for Flonase and sent the prescription to her mail order pharmacy. Meek Solano M.D. CT CT Job ID: [id number] documented in this encounter Plan of Treatment Upcoming Encounters Date Type Department Care Team (Latest Contact Info) Description 12/07/2023 12:15 PM CDT Appointment Department of Cardiovascular Diseases in [place], [place] [address] [place] [phone] Meek Solano M.D. [address] [place] [phone] Discharge Disposition: Home or Self Care 12/07/2023 2:30 PM CDT Diagnostic Division of Pulmonary Medicine in [place], [place] [address] [place] [phone] Meek Solano M.D. [address] [place] [phone] 12/19/2023 10:40 AM METER MAINTENANCE PERSON Appointment Department of Cardiovascular Diseases in [place], [place] [address] [place] [phone] Meek Solano M.D. [address] [place] [phone] 12/27/2023 4:30 PM METER MAINTENANCE PERSON Appointment Division of Pulmonary Medicine in [place], [place] [address] [place] [phone] Meek Solano M.D. [address] [place] [phone] Discharge Disposition: Home or Self Care documented as of this encounter Visit Diagnoses Diagnosis Chronic Cough- Primary Nodule Pulmonary documented in this encounter Care Teams Fish Bait Picker Relationship Specialty Start Date End Date Elsewhere, Pcp PCP - General Internal Medicine 03/21/22 documented as of this encounter
--- OUTSIDE RECORDS SUMMARY | 2023-11-28 11:56 | XMS_ITS | Encounter Summary ---
Author Organization [facility] Address [address] [place] [address] Care Team Providers Care Activity Therapy Specialist Name Role Phone Elsewhere, Pcp Primary Care Provider Unavailabl e Encounter Details Date Type Department Care Team (Latest Contact Info) Description 08/22/2023 1:30 PM CDT Clinical Communication Virtual Review in [place], [place] [address] [place] [phone] Social History Tobacco Use Types Packs/Day Years Used Date Smoking Tobacco: Former Cigarettes Q uit: 10/15/1972 Passive Smoke Exposure: Past Smokeless Tobacco: Never Alcohol Use Standard Drinks/Week Comments Yes 1 (1 standard drink = 0.6 oz pur e alcohol) [facility] Utilities Answer Date Recorded In the past 12 months has e App[employer], gas, oil, or water [employer] threatened to shut off services in your [...] file 08/06/2019 How often do you attend hoahaoism or quaker serv ices? Never 08/06/2019 Active [...] Living Expenses Not hard at all 11/08/2018 [facility] - Occupational Stress [...] your living situation today? I have a [facility] place to live 07/05/2023 Education Answer Date Recorded What is the highest level of school you have completed or the highest degree you have received? 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 [address] [place] [phone] Discharge Disposition: Home or Self Care 12/07/2023 2:30 PM CDT Diagnostic Division of Pulmonary Medicine in [place], [place] [address] [place] [phone] Meek Solano M.D. [address] [place] [phone] 12/19/2023 10:40 AM PROFILING MACHINE OPERATOR Appointment Department of Cardiovascular Diseases in [place], [place] [address] [place] [phone] Meek Solano M.D. [address] [place] [phone] 12/27/2023 4:30 PM PROFILING MACHINE OPERATOR Appointment Division of Pulmonary Medicine in [place], [place] [address] [place] [phone] Meek Solano M.D. [address] [place] [phone] (work) Discharge Disposition: Home or Self Care documented as of this encounter Visit Diagnoses Not on filedocumented in this encounter Care Teams Activity Therapy Specialist Relationship Specialty Start Date End Date Elsewhere, Pcp PCP - General Internal Medicine 03/21/22 documented as of this encounter
--- OUTSIDE RECORDS SUMMARY | 2023-11-28 11:56 | XMS_ITS | Clinical Summary ---
Author Organization [facility] Address [address] [place] [address] Care Team Providers Care Tire Changer Aircraft Name Role Phone Jewel Lomeli MD Primary Care Provider Source Comments You are receiving this document as you are listed as the primary care provider,follow-up provider, or the patient has been referred to you for consultation.This is in compliance with the Medicare and[facility] EHR Incentive Program,which states Providers who transition their patient to another setting of careor provider of care or refers their patient to another provider of care shouldprovide summary care record for each transition of care or referral. [facility]cat Allergies Active Allergy Reactions Criticality Noted Date Comments Acetaminophen 08/30/2003 Aspirin 08/30/2002 Azithromycin 11/15/2018 Mallory 11/15/2018 Ibuprofen 08/30/2003 Naproxen 11/15/2018 Medications Medication Sig Dispensed Refills Start Date End Date Status [facility] CALCIUM CARBONATE OR Take 2 tablets by mouth 4 times daily. LW Addl Instr:Take with food. 04/30/2004 Active promethazine (AKA PHENERGAN) 25 MG tablet Take 1 tablet by mouth NEEDED PRN. LW Comment:faxed LW Addl Instr:to tid as needed. 270 3 09/04/2004 Active unknown medication Indications: PN: 09/04/2004 Active furosemide (LASIX) 20 MG tablet Take 20 mg by mouth daily. Active aspirin 325 MG tablet Take 180 mg by mouth daily. Active miSOPROStol (CYTOTEC) 200 MCG tablet Take 200 mcg by mouth 4 times a day. Active cyclobenzaprine (FLEXERIL) 10 MG tablet Take 10 mg by mouth three times a day as needed for Muscle Spasms. Active HYDROcodone-acetami nophen (NORCO) 5-325 MG tablet Take 1-2 Tablets by mouth every 6 hours as needed for Pain. Active traMADol (ULTRAM) 50 MG tablet Take 50 mg by mouth every 6 hours as needed for Pain. Active omeprazole (PRILOSEC) 40 MG capsule Take 40 mg by mouth daily. Take 1 hour before a meal. Active SENNA OR Active calcitriol (ROCALTROL) 0.5 MCG capsule Take 0.5 mcg by mouth daily. Active drug not in computer Triamenterene/ HCTZ 12.5-25 daily Active drug not in computer Vince E 400mg 1 tab daily Active GABAPENTIN OR 300 mg three times a day. Active levothyroxine (SYNTHROID) 150 MCG tablet Take 137 mcg by mouth. 05/08/2012 Active calcitriol (ROCALTROL) 0.5 MCG capsule TAKE 3 CAPSULES IN THE MORNING AND 2 CAPSULES IN THE EVENING DIRECTED 05/09/2013 Active oxyCODONE HCl (OXYCONTIN OR) Take 5 mg by mouth as needed. Active methotrexate 2.5 MG tabletIndications:I nflammatory arthritis, osteoarthritis,Sarc oidosis,High risk medication use,Arthralgia, unspecified joint 3 tablets once a week for the 1st 2 weeks then increase to 6 tablets once a week thereafter 78 Tablet 1 08/20/2019 Active folic acid 1 MG tabletIndications:I nflammatory arthritis, osteoarthritis,Sarc oidosis,High risk medication use,Arthralgia, unspecified joint Take 1 Tablet by mouth daily. Please schedule follow up appointment prior to next fill. Thank you! 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 Hematochezia 12/11/2018 Shoulder pain 11/02/2017 Hypoglycemia 09/03/2016 Overview (12/14/2018): Likely reactive post gastric bypass Benign paroxysmal positional vertigo 06/10/2014 Myalgia 06/21/2013 Asthma 10/28/2011 DJD (degenerative joint disease) 08/03/2011 Gastroesophageal reflux disease 08/03/2011 Hypercholesterolemia 08/03/2011 Malignant neoplasm of breast 08/03/2011 Overview (12/14/2018): Left lumpectomy and radiation, [facility], Oct 2011 Pulmonary nodules/lesions, multiple 08/03/2011 Overview (12/14/2018): Followed at [facility] Fibromyalgia 08/03/2011 Somnambulism 08/03/2011 Ductal carcinoma in situ (DCIS) of breast 2011 Cerebrovascular accident 06/01/2010 Overview (12/14/2018): With temporary aphasia, 05-14-11. Protein S deficiency. HRT stopped. Intestinal bypass and anastomosis status 009 Spondylosis of cervical spine without myelopathy 08/21/2008 Abdominal wall hernia 06/08/2006 Iron deficiency anemia 03/01/2006 Calculus of gallbladder 10/09/2003 Overview (2016): LW Modifier: s/p cholecystectomy 10-09-03 LW Onset: [id number] ; Gallstones Obesity 11/14/2002 Overview (09/11/2015): LW Modifier: s/p gastric bypass - 2001 LW Onset: [id number] Hypothyroidism 11/14/2002 Overview (2016): LW Onset: 19Cnz11 ; Hypothyroidism On Replacement Resolved Problems Problem Noted Date Diagnosed Date Resolved Date Intractable migraine 11/14/2002 005 Overview (2016): LW Modifier: imitrex LW Onset: 13Uqo77 ; Migraine Without Aura Intractable Immunizations Name Administration Dates Next Due Flu Vac (3+ yrs) 11/28/2006 Flu Vac Preserv Free (3+yrs) 11/23/2013, 11/17/2012,11/19/2011,2010,12/10/2009,11/17/2009,11/02/2008,1 Influenza IIV3 (Trivalent) F luzone Highdose, 65+ Yrs (78923) 12/11/2018,11/28/2017,12/03/2013,2012 Influenza IIV4 (Quadrivalent ) 0.5mL (69639) 11/26/2016,11/27/2015,12/06/2014 Influenza, Unspecified Formulation 11/14/2002 PPSV23 (Pneumovax) 11/17/2007,11/14/2002 Td 02/07/2006,08/30/2002 Td (7+ yrs) 02/07/2006 Tdap 04/04/2013 Social History Tobacco Use Types Packs/Day Years Used Date Smoking Tobacco: Never Smokeless Tobacco: Never Alcohol Use Standard Drinks/Week Comments Yes 0 (1 standard drink = 0.6 oz pur e alcohol) Sex and Gender Information Value Date Recorded Sex Assigned at Not on file Gender Identity Not on file Sexual Orientation Not on file Last Filed Vital Signs Vital Sign Reading Time Taken Comments Blood Pressure 116/85 08/20/2019 9:29 AM CDT Pulse 89 08/20/2019 9:29 AM CDT Temperature - - Respiratory Rate - - Oxygen Saturation - - Inhaled Oxygen Concentration - - Weight 64.9 kg (143 lb) 08/20/2019 9:29 AM CDT Height 151.1 cm (4' 11.5) 12/14/2018 12:[address] Body Mass Index 28.4 12/14/2018 12:20 PM SYSTEM CONTROLLER Plan of Treatment Health Maintenance Due Date Last Done Comments Colon Cancer Screening Plan Due 1950 Medicare Annual Wellness Visit 1950 Mammogram 1950 Cholesterol 1997 Zoster/Shingles (1 of 2) 2002 Pneumococcal 65+ Yrs (2 - PCV) 11/16/2008 11/17/2007, 11/14/2002 DTaP/Tdap/Td (2 - Tdap) 04/04/2023 04/04/19 14, 02/07/2006, 02/07/2006, Additional history exists COVID-19 Vaccine (3 - season) 2023 05/06/2020, 04/15/2020 Influenza (#1) 2023 12/03/2019, 11/05/2018, 11/28/2017, Additional history exists RSV (1 - 1-dose 75+ series) 09/30/2027 Dexa Completed 11/08/2018 Hep C Screening (Preventive Services) Completed 12/14/2018 HepA Aged Out No longer eligi ble based on patient's age to complete this topic HepB Aged Out No longer eligi ble based on patient's age to complete this topic Hib Aged Out No longer eligi ble based on patient's age to complete this topic IPV (Polio) Aged Out No longer eligi ble based on patient's age to complete this topic RSV Aged Out No longer eligi ble based on patient's age to complete this topic MCV4 Aged Out No longer eligi ble based on patient's age to complete this topic Procedures Procedure Name Priority Date/Time Associated Diagnosis Comments HEPATITIS C ANTIBODY, WITH REFLEX Routine 12/14/2018 2:18 PM SYSTEM CONTROLLER Sarcoidosis Arthralgia, unspecified joint Erythromelalgia (HRC) Wells' syndrome from Last 3 Months or Most Recently Relevant to Health Maintenance Results * HCAB - Hepatitis C Virus Luana with Reflex In-House (12/14/2018 2:18 PM SYSTEM CONTROLLER) Hepatitis C Antibody Negative (Non Reactive) Negative (Non Reactive) 12/14/2018 7:00 PM SYSTEM CONTROLLER [facility] Comment:Antibodies to HCV no t detected. Does not exclude the possiblity of exposure to HCV. Blood Venipuncture / Unknown 12/14/2018 2:18 PM SYSTEM CONTROLLER 12/14/2018 2:18 PM SYSTEM CONTROLLER Mark German MD LAB_1 [facility] [address] [place] [address], [facility] from Last 3 Months or Most Recently Relevant to Health Maintenance Care Teams Tire Changer Aircraft Relationship Specialty Start Date End Date Jewel Lomeli MD [facility] [address] [place] [id number] PCP - General Family Practice 11/13/18
--- OUTSIDE RECORDS SUMMARY | 2023-11-28 11:56 | XMS_ITS | Encounter Summary ---
Author Organization [facility] Address [address] [place] [phone] Care Team Providers Care White Sugar Boiler Name Role Phone Elsewhere, Pcp Primary Care Provider Unavailabl e Encounter Details Date Type Department Care Team (Late st Contact Info) Description 11/22/2012 Confidential HX RST NO MAPPING Keysha Sanders M.D. [address] [place] [phone] Social History Tobacco Use Types Packs/Day Years Used Date Smoking Tobacco: Never Assessed Comments Unknown Sex and Gender Information Value Date Recorded Sex Assigned at Female 06/20/2017 1:09 PM CDT Legal Sex Female 2:46 AM [employer] ARCHITECT Gender Identity Female 06/20/2017 1:09 PM CDT Sexual Orientation Straight 06/20/2017 1: 09 PM CDT documented as of this encounter Progress Notes * Keysha Sanders M.D. - 11/22/2012 12:27 PM CDT DEMOGRAPHIC INFORMATION [facility] Number: [id number] Patient Name: Mrs. Nadine Leal Age: 62 Y Birthdate: 1950 Sex: F Address: [address] [place] [address], [place] City: [place] [address] CONFIDENTIAL NOTE Service Date/Time: 22-Nov-2012 12:27 Provider: Keysha Sanders MD Pager: [phone] Service: BREAST Type/Desc: MIS Status: Fnl Revision #: 2 IMPRESSION/REPORT/PLAN I received a telephone call from the patient. She had called in with some concerns about her biopsy. She wanted to make me aware as per our previous discussion about the pain that she had with her biopsy. She wanted to discuss this further. She notes that when she had the stereotactic-guided biopsy, she notes that with the first several passes the biopsy was fine. However, she notes that after some discussion between the radiologist and another individual, an additional area laterally was biopsied, and this was excruciatingly painful. She notes that the nurses had to flail themselves onto her to keep her from moving and that one of the nurses had tears in her eyes afterwards, stating that should not have happened. She states that it does not feel that the area was numbed at all. We discussed her concerns. We discussed that as I was not there it is difficult for me to confirm all of the details of her accounting, which I did not question. We discussed that the only situation where I can see that this may have happened is that there was an assumption that the area was numb and it may not have been numbed enough. She felt that it was not numb at all. We did discuss that there really is no way for us to see where the breast is numb and that the radiologist numbs the area as best they can. We discussed that she would not have been biopsied intentionally without proper numbing. We discussed that anything of they type of pain she describes in this type of circumstance wouldbe a very rare occurrence and that there is no guarantee that on any future biopsies there would aguilera assumption that this would happen again. We reviewed that otherwise her biopsy went by the book and that there were no other apparent complications from this. We reviewed that I cannot see any areas from the biopsy report where the radiologist went off procedure with her biopsy, and per the report, no apparent complications during the biopsy procedure were noted. Specifically, I cannot see where any of the issues that she is noting were noted with the report. Long discussion with the patient regarding her concerns. I did acknowledge her concerns with the pain related to this. As previously discussed, other than the pain related to the biopsy, she has really did not have any other issues related to the biopsy, specifically no hematoma, infection, etcetera. She has otherwise recovered well aside from some twinges that she will get in the area of the biopsy on occasion. I expect that these should get better. She really just wanted to make me aware that this had happened as she does not want anybody else to experience anything like what she did. I tried to reassure her that this really should have just been a fluke related to an assumption that she was numb in the area. Original: cad/dkb revised by cad Electronically Signed: 24-Nov-2012 11:02 by Suzanne Sanders MD Clinical Notes - [id number] Id: [id number] Status: Fnl [employer] ARCHITECT documented in this encounter Plan of Treatment Upcoming Encounters Date Type Department Care Team (Latest Contact Info) Description 12/07/2023 12:15 PM CDT Appointment Department of Cardiovascular Diseases in [address] [phone] Meek Solano M.D. [address] [place] [phone] Discharge Disposition: Home or Self Care 12/07/2023 2:30 PM CDT Diagnostic Division of Pulmonary Medicine in [address] [phone] Meek Solano M.D. [address] [place] [phone] 12/19/2023 10:40 AM SH[employer] SOL[employer] ARCHITECT Appointment Department of Cardiovascular Diseases in [address] [phone] Meek Solano M.D. [address] [place] [phone] 12/27/2023 4:30 PM [employer] ARCHITECT Appointment Division of Pulmonary Medicine in [address] [phone] Meek Solano M.D. [address] [place] [phone] Discharge Disposition: Home or Self Care documented as of this encounter Visit Diagnoses Not on filedocumented in this encounter Additional Health Concerns Infection Onset Date Last Indicated Resolved Time COVID19 Pending 08/06/2019 08/06/2019 08/06/2019 1 0:11 PM CDT COVID19 Pending 09/30/2019 09/30/2019 10/01/2019 1 0:03 AM CDT COVID19 Pending 10/15/2020 10/15/2020 10/16/2020 4 :19 AM CDT documented as of this encounter Care Teams White Sugar Boiler Relationship Specialty Start Date End Date Elsewhere, Pcp PCP - General Internal Medicine 03/21/22 documented as of this encounter
--- OUTSIDE RECORDS SUMMARY | 2023-11-28 11:56 | XMS_ITS | Encounter Summary ---
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 [address] [place] [phone] Phone: tel: fax: [facility] Referral ID Status Reason Start Date Expiration Date Visits Re quested Visits Authorized [id number] Closed 07/13/2023 07/12/2024 1 1 Reason for Visit * MRI/CAT/PET Scan (Routine) - Closed Specialty Diagnoses / Procedures Referred By Contac t Referred To Contact Radiology Diagnoses Nodules Pulmonary Multiple Procedures CT Chest without IV Contrast Meek Solano M.D. 200 [place] [address] Phone: tel: fax: [facility] Referral ID Status Reason Start Date Expiration Date Visits Re quested Visits Authorized [id number] Closed 07/13/2023 07/12/2024 1 1 Encounter Details Date Type Department Care Team (Latest Contact Info) Description 08/23/2023 9:46 AM CDT - 08/23/2023 11:59 PM CDT Hospital Encounter Department of Radiology, [facility], in [place], [place] [address] [place] [address] Meek Solano M.D. [address] [place] [address] Nodules Pulmonary Multiple Discharge Disposition: Home or Self Care Social History Tobacco Use Types Packs/Day Years Used Date Smoking Tobacco: Former Cigarettes Q uit: 10/15/1972 Passive Smoke Exposure: Past Smokeless Tobacco: Never Alcohol Use Standard Drinks/Week Comments Yes 1 (1 standard drink = 0.6 oz pur e alcohol) [facility] Utilities Answer Date Recorded In the [...] How often do you attend latter-day or zoroastrianism serv ices? Never 08/06/2019 Active Member of [...] Living Expenses Not hard at all 11/08/2018 [facility] [place] [facility] Occup[facility] ional [facility] - Occupational Stress [...] your living situation today? I have a [facility] place to live 07/05/2023 Education Answer Date Recorded What is the highest level of school you have completed or the highest degree you have received? 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 2 furosemide (LASIX) 20 mg tablet Take 20 [...] hours as needed for pain. triamterene-hydr oCHLOROthiazide (MAXZIDE-25) 37.5-25 mg per tablet TAKE 1 TABLET DAILY 100 tablet 3 3 10/07/19 24 documented as of this encounter Plan of Treatment Upcoming Encounters Date Type Department Care Team (Latest Contact Info) Description 12/07/2023 12:15 PM CDT Appointment Department of Cardiovascular Diseases in [place], [place] [address] [place] [address] Meek Solano M.D. 200 [place] [phone] Discharge Disposition: Home or Self Care 12/07/2023 2:30 PM CDT Diagnostic Division of Pulmonary Medicine in [place], [place] [address] [place] [address] Meek Solano M.D. [address] [place] [phone] 12/19/2023 10:40 AM TEST CENTER MANAGER Appointment Department of Cardiovascular Diseases in [place], [place] [address] [place] [address] Meek Solano M.D. [address] [place] [phone] 12/27/2023 4:30 PM TEST CENTER MANAGER Appointment Division of Pulmonary Medicine in [place], [place] [address] [place] [address] Meek Solano M.D. [address] [place] [phone] Discharge Disposition: Home or Self Care documented as of this encounter Procedures Procedure Name Priority Date/Time Associated Diagnosis Comments CT CHEST WITHOUT IV CONTRAST RAD - Routine (most inpatients and all outpatients) 08/23/2023 10:01 AM CDT Nodules Pulmonary Multiple documented in this encounter Results * CT Chest without IV Contrast (08/23/2023 10:01 AM CDT) Anatomical Region Laterality Modality Chest, Thoracic RST LOS, Tho racic ARZ LOS, Thoracic FLA LOS N/A Computed Tomography, Compute d Tomography Impressions 08/23/2023 12:03 PM CDT 1. ??Slight increase in size of a couple of pulmonary nodules including the dominant solid pulmonary nodule in the right upper lobe with subtle calcifications since 11/17/2015. Additional bilateral pulmonary nodules are overall unchanged including a dominant solid nodule in the left lower lobe. Given the slow growth since 2016, findings favor to be benign in nature however a carcinoid tumor could present as slow growing solid pulmonary nodules and cannot be excluded. 2. ??New 3 mm pulmonary nodule in the right middle lobe and new patchy opacity in the right middle lobe. Findings are indeterminate however could be infectious/inflammatory nature. Consider short-term follow-up to ensure resolution. Narrative 08/23/2023 12:03 PM CDT EXAM: CT CHEST WITHOUT IV CONTRAST COMPARISON: CT chest 11/17/2015 and 11/07/2014. FINDINGS: New 3 mm pulmonary nodule in the right middle lobe (series 201, images 386). New patchy opacity in the right middle lobe inferiorly (series 201, image 406). Mild increase in size of the partially calcified solid nodule in the right upper lobe (series 201, image 179) measuring 8 mm compared to prior 7 mm on 11/17/2015. Slight increase in size of a 3 mm nodule in the right middle lobe (images 308) compared to prior 2 mm. Unchanged additional pulmonary nodules. For example a 3 mm nodule in the right middle lobe (images 201, images 285), a partially calcified 6 mm nodule in the lingula (series 201, images 315) a 4 mm nodule in the right lower lobe (series 201, image 431), a 10 mm noncalcified solid nodule in the left lower lobe centrally (images 281). No pleural effusion. No thoracic lymphadenopathy by size criteria. Mild coronary Small to medium-size esophageal hiatal hernia. Calcification in the left breast. Diffuse degenerative changes of the spine. Postsurgical changes cervical spine. Postsurgical changes right shoulder. Cholecystectomy. Postsurgical changes bariatric surgery. Procedure Note Luciana Kaye M.D. - 08/23/2023 EXAM: CT CHEST WITHOUT IV CONTRAST COMPARISON: CT chest 11/17/2015 and 11/07/2014. FINDINGS: New 3 mm pulmonary nodule in the right middle lobe (series 201, [id number]). New patchy opacity in the right middle lobe inferiorly (series 201, [id number]). Mild increase in size of the partially calcified solid nodule in the rightupper lobe (series 201, image 179) measuring 8 mm compared to prior 7 mmon 11/17/2015. Slight increase in size of a 3 mm nodule in the rightmiddle lobe (images 308) compared to prior 2 mm. Unchanged additional pulmonary nodules. For example a 3 mm nodule in theright middle lobe (images 201, images 285), a partially calcified 6 mmnodule in the lingula (series 201, images 315) a 4 mm nodule in the rightlower lobe (series 201, image 431), a 10 mm noncalcified solid nodule in the left lower lobe centrally ([id number]). No pleural effusion. No thoracic lymphadenopathy by size criteria. Mild coronary Small tomedium-size esophageal hiatal hernia. Calcification in the left breast. Diffuse degenerative changes of the spine. Postsurgical changes cervicalspine. Postsurgical changes right shoulder. Cholecystectomy. Postsurgical changes bariatric surgery. IMPRESSION: 1. Slight increase in size of a couple of pulmonary nodules including thedominant solid pulmonary nodule in the right upper lobe with subtlecalcifications since 11/17/2015. Additional bilateral pulmonary nodulesare overall unchanged including a dominant solid nodule in the left lower lobe. Given the slow growth [id number], findings favor to be benign in nature however a carcinoid tumorcould present as slow growing solid pulmonary nodules and cannot beexcluded. 2. New 3 mm pulmonary nodule in the right middle lobe and new patchyopacity in the right middle lobe. Findings are indeterminate however couldbe infectious/inflammatory nature. Consider short-term follow-up to ensureresolution. us Meek Solano M.D. IMDelfino CT PROCEDURES Final Resul t documented in this encounter Visit Diagnoses Diagnosis Nodules Pulmonary Multiple documented in this encounter Care Teams Submarine Cable Equipment Technician Relationship Specialty Start Date End Date Elsewhere, Pcp PCP - General Internal Medicine 03/21/22 documented as of this encounter
== END 2023-11-28 11:50 | disposition home or self-care (01) ==
PROVIDERS: PCP Family Medicine; Visit Provider Family Medicine
DX: R53.83 Other fatigue (principal); M79.7 Fibromyalgia; Z13.6 Encounter for screening for cardiovascular disorders
CPT/HCPCS: 80053; 80061

== ENCOUNTER 2024-09-14 10:38 | Outpatient (CLI) | payer OTHER, MEDICARE, SELFPAY | END 2024-09-14 10:39 | disposition home or self-care (01) | PROVIDERS: PCP Family Medicine; Visit Provider Family Medicine | DX: I10 Essential (primary) hypertension (principal); E03.9 Hypothyroidism, unspecified; E87.6 Hypokalemia; E53.8 Deficiency of other specified B group vitamins; R63.4 Abnormal weight loss | CPT/HCPCS: 80076; 82607; 84439; 84443 ==

== ENCOUNTER 2024-11-19 11:00 | Outpatient (RCR) | payer OTHER, MEDICARE, SELFPAY | END 2025-01-22 14:05 | disposition home or self-care (01) | PROVIDERS: PCP Family Medicine; Visit Provider Student in an Organized Health Care Education/Training Program | DX: Z48.89 Encounter for other specified surgical aftercare (principal); M25.561 Pain in right knee; Z96.651 Presence of right artificial knee joint; Z51.89 Encounter for other specified aftercare | CPT/HCPCS: 97016; 97110; 97112; 97116; 97140; 97161 ==